=== PATIENT | male | born 1960 | race African-American/Black ===

== ENCOUNTER 2016-11-02 22:36 | Inpatient (IN) | payer MEDICARE ==
[~2016-11-02] VITALS: Ht 177.8 cm; Wt 94.5 kg
[~2016-11-02 22:36] MED LIST: GANCICLOVIR LEFT EYE; GLIPIZIDE10 MG PO; HUMALOG MIX 50/53 ML SC; HYDROCHLOROTHIA25 MG PO; HYDROCODON-ACE1 EAC7 PO; LIPITOR40 MG PO; NEURONTIN 300300 MG PO
[2016-11-03 05:56] VITALS: BP 131/80; Ht 177.8 cm; Wt 94.5 kg
[2016-11-03 07:59] VITALS: BP 131/85
--- NOTE | 2016-11-03 08:06 | NUR ---
PT. AOX4 RESP EVEN AND NONLABORED. DENIES NEEDS AT THIS TIME. IV IN RIGHT HAND PATENT AND INTACT. BED AT LOWEST SETTING. CALL LIGHT WITHIN REACH. WILL CONTINUE TO MONITOR
[2016-11-03 11:31] VITALS: BP 132/84
[2016-11-03 14:40] LABS: BASOPHILS 0.5 % (0.0-2.0); EOSINOPHILS 9.4 % (0-7); IMMATURE GRANULOCYTES 0.2 % (0-5); LYMPHOCYTES 31.9 % (15-50); MCH 27.6 pg (26.0-34.0); MCV 86.2 fL (80.0-100.0); MEAN PLATELET VOLUME 10.6 fL (7.4-10.4); MONOCYTES 10.6 % (2-11); NEUTROPHILS 47.4 % (40-80); PLATELET COUNT 154 10x3/uL (130-400); WBC 4.1 10x3/uL (4.8-10.8)
[2016-11-03 15:05] LABS: ALBUMIN 2.3 g/dL (3.4-5.0); ANION GAP 17.6 mmol/L (8-16); BILIRUBIN - TOTAL 0.24 mg/dL (0.2-1.3); CALCIUM 7.7 mg/dL (8.5-10.1); CARBON DIOXIDE 19.5 mmol/L (21.0-32.0); CREATININE - SERUM 7.1 mg/dL (0.6-1.3); POTASSIUM - SERUM 5.1 mmol/L (3.5-5.1); PROTEIN - SERUM 5.8 g/dL (6.4-8.2)
[2016-11-03 16:12] VITALS: BP 146/89
--- NOTE | 2016-11-03 20:22 | NUR ---
PATIENT SLEEPING. NO SIGNS OF DISTRESS NOTED. AROUSES EASILY TO VOICE. ALERT AND ORIENTED. ASSESSMENT COMPLETED. SCHEDULED MEDICATIONS GIVEN. DENIES ANY NEEDS AT THIS TIME. BED LOW. CALL LIGHT IN REACH.
[2016-11-03 21:00] VITALS: BP 138/89
[2016-11-04] VITALS (12 sets, daily range): BP systolic 130–196; BP diastolic 82–110
--- NOTE | 2016-11-04 06:09 | NUR ---
PATIENT RESTING WITH EYES CLOSED. NO VISIBLE SIGNS OF DISTRESS. BED IN LOWEST POSITION AND CALL LIGHT WITHIN REACH.
[2016-11-04 06:25] LABS: BASOPHILS 0.4 % (0.0-2.0); EOSINOPHILS 7.7 % (0-7); HEMATOCRIT 25.2 % (42.0-54.0); HEMOGLOBIN 8.3 g/dL (13.5-17.5); IMMATURE GRANULOCYTES 0.2 % (0-5); MCH 28.3 pg (26.0-34.0); MCHC 32.9 g/dL (31.0-37.0); MEAN PLATELET VOLUME 10.9 fL (7.4-10.4); MONOCYTES 13.2 % (2-11); NEUTROPHILS 49.5 % (40-80); PLATELET COUNT 173 10x3/uL (130-400); RBC 2.93 10x6/uL (4.20-6.10); RDW 13.7 % (11.5-14.5)
[2016-11-04 06:36] LABS: WBC 5.5 10x3/uL (4.8-10.8)
[2016-11-04 06:52] LABS: ALBUMIN 2.3 g/dL (3.4-5.0); ANION GAP 16.2 mmol/L (8-16); BILIRUBIN - TOTAL 0.33 mg/dL (0.2-1.3); CALCIUM 7.6 mg/dL (8.5-10.1); CARBON DIOXIDE 20.6 mmol/L (21.0-32.0); CREATININE - SERUM 7.3 mg/dL (0.6-1.3); POTASSIUM - SERUM 4.8 mmol/L (3.5-5.1); PROTEIN - SERUM 6.4 g/dL (6.4-8.2)
--- NOTE | 2016-11-04 07:34 | NUR ---
PT. AOX4 RESP EVEN AND NONLABORED LUNG SOUNDS CLEAR SKIN [place] WARM AND DRY WITH GOOD TURGOR NO EDEMA CAPILLARY REFILL<3SEC ABD SOFT AND ROUNDED BS+[id number]. PT. DENIES NEEDS AT THIS TIME. BED IN LOWEST POSITION AND CALL LIGHT WITHIN REACH. WILL CONTINUE TO MONITOR
--- NOTE | 2016-11-04 11:32 | NUR ---
Patient Name: NATALY SURESH Admission Status: ER Accout number: [id number] Admission Date: 11-03-2016 : 1960 Admission Diagnosis: Attending: CELESTINO Current LOS: 1 Anticipated DC Date: 11-07-2016 Planned Disposition: Home with Home Health Primary Insurance: [facility] Discharge Planning Comments: CM MET WITH PATIENT AND FIANCE (NAZANIN) REGARDING D/C NEEDS AND PLANS. PATIENT SLEEPING AND FIANCE ANSWERED QUESTIONS. FIANCE WILL DRIVE PATIENT HOME AT DISCHARGE. FIANCE STATED THERE ARE NO STEPS OR STAIRS AT THEIR HOME. PATIENT HAS A WALKER, WHEELCHAIR, CANE, AND GLUCOMETER AT HOME. PATIENT CHECKS HIS SUGAR 1-2 X A DAY PER FIANCE. PATIENTS PCP IS DR. BENNETT AT [facility] HERE IN [place]. PATIENT USES [facility] [address] FOR HIS PHARMACY. PATIENTS FIANCE CHOSE [facility] FIRST AND THEN [facility] SECOND IF THERE WAS A PROBLEM WITH INSURANCE. CM WILL CONTINUE TO FOLLOW PATIENT WITH D/C NEEDS AND PLANS. PCP DR. BENNETT ([facility]) [place] [address] - [phone] RIOS PEREA ([facility]) [phone] Coal Loader: Fara Poe How many steps to enter\exit or inside your home? 0 0 * PCP DR. BENNETT AT [facility] 0 * Pharmacy [facility] [address] 0 * Preadmission Environment Home with Family 0 * ADLs Independent 0 * Equipment Cane Glucometer Walker Wheelchair 0 * List name and contact numbers for known caregivers / representatives who currently or will assist patient after discharge: NAZANIN PEREA ([facility]) [phone] 0 * Community resources currently utilized None 0 * Additional services required to return to the preadmission environment? Yes 0 * Can the patient safely return to the preadmission environment? Yes 0 * Has this patient been hospitalized within the prior 30 days at any hospital? No 0 Grand Total: 0
--- NOTE | 2016-11-04 11:40 | NUR ---
PT. BLOOD GLUCOSE 46. D50 VIA IV GIVEN AT THIS TIME WILL RECHECK FSBS IN 15 MINUTES.
--- NOTE | 2016-11-04 15:10 | NUR ---
1503: UNABLE TO REACH FAMILY EXT 2500, 2525, AND 2206. ATTEMPTED X2 TO REACH FAMILY.
--- NOTE | 2016-11-04 21:55 | NUR ---
PATIENT RESTING IN BED WITH EYES CLOSED. NO SIGNS OF DISTRESS NOTED. AROUSES EASILY TO VOICE. ASSESSMENT COMPLETED. SCHEDULED MEDS GIVEN. FSBS 47 ASHLEY CRACKERS AND PEANUT BUTTER GIVEN. ALERT AND ORIENTED. DENIES ANY OTHER NEEDS AT THIS TIME. BED LOW. CALL LIGHT IN REACH. AT BEDSIDE
--- NOTE | 2016-11-05 00:18 | NUR ---
Rehab Prescreen Order received- the patient has [facility] insurance & will require a PreAuth prior to IRF stay. Will need an OT eval for PreAuth & awaiting PT eval that has been ordered. Thank you for this referral! Cecile García RN Clinical Liaison, [place]
--- NOTE | 2016-11-05 01:58 | NUR ---
PATIENT WATCHING TV WITH GUEST AT BEDSIDE AND DENIES NEEDS AT THIS TIME. BED IN LOWEST POSITION AND CALL LIGHT WITHIN REACH.
[2016-11-05 05:00] VITALS: BP 143/82
[2016-11-05 06:32] LABS: BASOPHILS 0.1 % (0.0-2.0); EOSINOPHILS 5.9 % (0-7); HEMATOCRIT 25.2 % (42.0-54.0); HEMOGLOBIN 8.1 g/dL (13.5-17.5); IMMATURE GRANULOCYTES 0.1 % (0-5); MCH 27.6 pg (26.0-34.0); MCHC 32.1 g/dL (31.0-37.0); MCV 85.7 fL (80.0-100.0); MEAN PLATELET VOLUME 11.5 fL (7.4-10.4); MONOCYTES 10.4 % (2-11); NEUTROPHILS 71.5 % (40-80); PLATELET COUNT 172 10x3/uL (130-400); RBC 2.94 10x6/uL (4.20-6.10); RDW 13.8 % (11.5-14.5); WBC 6.8 10x3/uL (4.8-10.8)
[2016-11-05 07:07] LABS: ALBUMIN 2.2 g/dL (3.4-5.0); BILIRUBIN - TOTAL 0.32 mg/dL (0.2-1.3); CALCIUM 7.9 mg/dL (8.5-10.1); CARBON DIOXIDE 18.2 mmol/L (21.0-32.0); CREATININE - SERUM 7.6 mg/dL (0.6-1.3); POTASSIUM - SERUM 5.2 mmol/L (3.5-5.1); PROTEIN - SERUM 6.5 g/dL (6.4-8.2)
--- NOTE | 2016-11-05 09:00 | NUR ---
ASSESSMENT PER FLOW SHEET.PT WITHOUT DISTRESS.CALL LIGHT IN REACH.DENIES NEEDS.
--- NOTE | 2016-11-05 09:33 | NUR ---
Rehab Prescreening Consult recieved and the chart has been reviewed. He is [facility] M[facility] and will require a preauthorization for IRF. A PT/OT eval will be required for the insurance to review. The CM will be made aware. Audra Britt RN Clinical Liaison, Rehab
[2016-11-05 11:04] VITALS: BP 181/111
--- NOTE | 2016-11-05 11:30 | NUR ---
FSBS 81.DENIES NEEDS.
[2016-11-05 11:48] VITALS: BP 154/99
--- NOTE | 2016-11-05 14:30 | NUR ---
RESTING WITHOUT DISTRESS.PAIN CONTROLLED WITH CERTIFIED SURGICAL ASSISTANT.
[2016-11-05 16:35] VITALS: BP 167/99
--- NOTE | 2016-11-05 18:47 | NUR ---
REMAINS WITHOUT NEEDS,WITHOUT CHANGE.CONT PLAN OF CARE
--- NOTE | 2016-11-05 19:00 | NUR ---
BEDSIDE REPORT RECEIVED AND CARE OF PT ASSUMED. PT SITTING UP ON SIDE OF BED AT THIS TIME. DRESSING ON LEFT HIP CLEAN AND DRY. IV IN RIGHT HAND PATENT WITH 1/2 NS INFUSING AT 75 ML /HR. REHAB SPECIALIST / DILAUDID IN USE FOR PAIN CONTROL. WILL MONITOR CLOSELY FOR NEEDS. CALL LIGHT WITHIN REACH.
[2016-11-05 20:48] VITALS: BP 159/94
--- NOTE | 2016-11-05 21:00 | NUR ---
HS MEDICATIONS GIVEN. FSBS THIS CHECK 72...HS SNACK OF PEANUT BUTTER, ASHLEY CRACKERS AND REGULAR LEMON [place] PASS SODA GIVEN. WILL CONTIUE TO MONITOR FOR NEEDS.
[2016-11-06 00:18] VITALS: BP 175/88
--- NOTE | 2016-11-06 01:46 | NUR ---
PT RESTING QUIETLY IN SUPINE POSITION WITH UNLABORED BREATHING. WILL CONTINUE TO MONITOR FOR NEEDS.
--- NOTE | 2016-11-06 03:47 | NUR ---
BLOOD PRESSURE 185/105 THIS CHECK. GAVE HYDRALAZINE 10 MG IVP PER PRN ORDER. WILL MONITOR FOR EFFECTIVENESS.
[2016-11-06 04:27] VITALS: BP 185/105
[2016-11-06 06:32] LABS: BASOPHILS 0.1 % (0.0-2.0); EOSINOPHILS 5.7 % (0-7); HEMATOCRIT 24.7 % (42.0-54.0); HEMOGLOBIN 8.2 g/dL (13.5-17.5); IMMATURE GRANULOCYTES 0.3 % (0-5); LYMPHOCYTES 13.5 % (15-50); MCH 28.2 pg (26.0-34.0); MCHC 33.2 g/dL (31.0-37.0); MCV 84.9 fL (80.0-100.0); MEAN PLATELET VOLUME 11.3 fL (7.4-10.4); MONOCYTES 12.2 % (2-11); NEUTROPHILS 68.2 % (40-80); PLATELET COUNT 167 10x3/uL (130-400); RBC 2.91 10x6/uL (4.20-6.10); RDW 13.7 % (11.5-14.5); WBC 6.8 10x3/uL (4.8-10.8)
[2016-11-06 06:39] LABS: ALBUMIN 2.1 g/dL (3.4-5.0); ANION GAP 19.7 mmol/L (8-16); BILIRUBIN - TOTAL 0.37 mg/dL (0.2-1.3); CALCIUM 8.2 mg/dL (8.5-10.1); CARBON DIOXIDE 16.1 mmol/L (21.0-32.0); CREATININE - SERUM 8.1 mg/dL (0.6-1.3); POTASSIUM - SERUM 5.8 mmol/L (3.5-5.1); PROTEIN - SERUM 6.5 g/dL (6.4-8.2)
--- NOTE | 2016-11-06 08:03 | OP ---
PATIENT NAME: NATALY SURESH MEDICAL RECORD: [id number] :56 LOCATION:D.[id number] ADMISSION DATE:11/03/16 SURGEON: ADRIANE SERNA MD DATE OF OPERATION: 11/04/2016 PREOPERATIVE DIAGNOSIS: Left femoral neck fracture. POSTOPERATIVE DIAGNOSIS: Left femoral neck fracture. PROCEDURE PERFORMED: Left hip pinning with Biomet titanium cannulated screw, 6.5 screws. SURGEON: Ricco Serna MD ANESTHESIA: General. CONDITION: He tolerated the procedure well, was transferred to recovery room in stable condition at termination of procedure. INDICATIONS: This is a 56-year-old gentleman, who fell and landed on his left hip, presents with a nondisplaced left femoral neck fracture. We discussed the options and he elected to go ahead with screws. Discussed with him risks, benefits, and alternatives including failure of the bone to heal, need for further procedure, anesthesia risk, he understood and wished to proceed. OPERATIVE REPORT: The patient was taken to operating room, placed in a supine position. General anesthesia was obtained. His left hip was confirmed to be the correct hip. It was prepped and draped in normal fashion. He did receive Ancef per protocol. Procedure was begun by making li on his body with the AP and lateral views and then making a small incision. This was taken down, split to the IT band. Once this was accomplished, I placed guidewires up across the femoral neck into the femoral head. I then proceeded to place three 6.5 titanium cannulated screw, 85-mm in length. I did place 2 washers on them. These AP and lateral views showed that they were in good position. I therefore went ahead, irrigated, then closed the IT band with a #1 Vicryl followed by 2-0 Vicryl, then 3-0 Prolene, soft dressing was placed. He was awakened and transferred to the recovery room in stable condition, having tolerated procedure well. TRANSINT:[id number] Voice Confirmation ID: [id number] DOCUMENT ID: [id number] ADRIANE SERNA MD at 0803 CC: [id number] DICTATION DATE: 11/04/16 1557 RESIDENTIAL SPECIALIST: 11/04/16 1908 ADM IN [place] [id number]
[2016-11-06 08:07] VITALS: BP 138/75
--- NOTE | 2016-11-06 08:11 | NUR ---
AWAKE AND ALERT. ORIENTED X3. NO C/O AT THIS TIME. FAMILY AT BEDSIDE. LUNGS WITH FAINT CRACKLES IN UPPER LOBES ENCOURAGED TO USE IS WITH GOOD COUGH AFTER. SKIN IS INTACT WITHOUT REDNESS EXCEPT INCISION TO LEFT THIGH WHICH HAS A DRY INTACT DRESSIGN IN PLACE. NEURO CHECKS WNL. IV TO RIGHT HAND PATENT WITHOUT REDNESS AT INSERTION SITE. REPORTS NO BM SINCE SURGERY. WILL MONITOR. DENIES NEEDS.
--- NOTE | 2016-11-06 09:30 | NUR ---
IV TO RIGHT HAND CAME OUT WHILE TRANSFERRING WITH PT WITH CATHETER INTACT. UP IN CHAIR AT THIS TIME.
--- NOTE | 2016-11-06 11:19 | NUR ---
IV access-20 gauge inserted in right upper arm for IV access Ana Rutherford RN
--- NOTE | 2016-11-06 11:30 | NUR ---
IV SITED TO RIGHT UPPER ARM PER BETHEL FRANCIS RN. ATTEMPTS X 3.
[2016-11-06 11:56] VITALS: BP 136/78
--- NOTE | 2016-11-06 12:00 | NUR ---
FSBS 107. NO COVERAGE REQUIRED.
[2016-11-06 15:37] VITALS: BP 132/70
[2016-11-06 17:11] LABS: APPEARANCE CLEAR (CLEAR); BILIRUBIN NEGATIVE (NEGATIVE); COLOR YELLOW (YELLOW); GLUCOSE NEGATIVE (NEGATIVE); KETONE NEGATIVE (NEGATIVE); LEUKOCYTE ESTERASE NEGATIVE (NEGATIVE); NITRITE NEGATIVE (NEGATIVE); PROTEIN 3+ mg/dL (NEGATIVE); SPECIFIC GRAVITY 1.015 (1.005-1.020); UROBILINOGEN NORMAL (NORMAL)
[2016-11-06 17:13] LABS: BACTERIA FEW /hpf (NONE SEEN); EPITHELIAL CELLS 0-5 /hpf (0-5); WHITE CELLS - URINE 0-5 /hpf (0-5)
--- NOTE | 2016-11-06 18:28 | NUR ---
ATE ALL OF SUPPER HE WANTED. NO CHANGES NOTED. DENIES NEEDS.
--- NOTE | 2016-11-06 19:40 | NUR ---
PT LYING IN BED WATCHING TV, ASSESSMENT COMPLETE, NO ACUTE DISTRESS NOTED, DENIES NEEDS AT THIS TIME, FALL PRECAUTIONS IN PLACE, CL IN REACH, WILL MONITOR
[2016-11-06 20:00] VITALS: BP 152/87
--- NOTE | 2016-11-06 21:22 | NUR ---
MEDS GIVEN PER MAR, FAVIOLA WELL, DENIES NEEDS, FALL PRECAUTIONS IN PLACE, CL IN REACH
--- NOTE | 2016-11-06 23:52 | NUR ---
RESTING IN BED WITH EYES CLOSED, RESP WITH EASE, NO DISTRESS NOTED, FALL PRECAUTIONS IN PLACE, CL IN REACH
[2016-11-07 04:00] VITALS: BP 167/95
--- NOTE | 2016-11-07 04:44 | NUR ---
PRN APRESSOLINE GIVEN PER MAR FOR BP OF 167/95, NO DISTRESS NOTED, DENIES NEEDS, VISITOR IN ROOM, CL IN REACH
--- NOTE | 2016-11-07 06:35 | NUR ---
PT REFUSED TO ALLOW LABS TO BE DRAWN
[2016-11-07 08:55] VITALS: BP 166/83
[2016-11-07 09:19] LABS: % SATURATION 11 % (15-55); IRON 20 ug/dl (35-150); TOTAL IRON BIND CAPACITY 173 ug/dl (260-445); UNSAT IRON BIND CAPACITY 153 ug/dl (150-375)
--- NOTE | 2016-11-07 09:30 | NUR ---
CM REASSESSMENT NOTE: PATIENT IS DISCHARGING HOME TODAY. PATIENT REFUSED SNF, AND OP REHAB. PATIENT REQUESTED HH W/PHYSICAL THERAPY. THE [facility] FORM WAS SIGNED WITH [facility] AND REFERRAL WAS SENT. THE D/C IMM NOTICE WAS SERVED. CM WILL CONTINUE TO FOLLOW PATIENT WITH D/C NEEDS AND PLANS.
[2016-11-07 11:58] VITALS: BP 147/82
[2016-11-07 12:12] LABS: BASOPHILS 0.3 % (0.0-2.0); EOSINOPHILS 3.5 % (0-7); HEMATOCRIT 25.4 % (42.0-54.0); HEMOGLOBIN 8.6 g/dL (13.5-17.5); IMMATURE GRANULOCYTES 0.3 % (0-5); MCH 27.9 pg (26.0-34.0); MCHC 33.9 g/dL (31.0-37.0); MEAN PLATELET VOLUME 10.6 fL (7.4-10.4); MONOCYTES 11.5 % (2-11); NEUTROPHILS 75.4 % (40-80); PLATELET COUNT 193 10x3/uL (130-400); RBC 3.08 10x6/uL (4.20-6.10); RDW 13.6 % (11.5-14.5); WBC 7.7 10x3/uL (4.8-10.8)
[2016-11-07 12:15] LABS: MCV 82.5 fL (80.0-100.0)
[2016-11-07 12:44] LABS: ALBUMIN 2.1 g/dL (3.4-5.0); BILIRUBIN - TOTAL 0.34 mg/dL (0.2-1.3); CREATININE - SERUM 8.5 mg/dL (0.6-1.3); PHOSPHOROUS 6.2 mg/dL (2.5-4.9); PROTEIN - SERUM 6.2 g/dL (6.4-8.2)
[2016-11-07 12:46] LABS: ANION GAP 23.6 mmol/L (8-16); POTASSIUM - SERUM 4.6 mmol/L (3.5-5.1)
--- NOTE | 2016-11-07 13:26 | NUR ---
Rehab has been following this patient during his stay. He is not medically stable and non-compliant with the physicians plan of care. He told the CM today he wants to go home and declines a SNF or IRF. He does not qualify for inpatient rehab. Audra Britt RN CL
[2016-11-07] MEDS ORDERED: NORVASC5 MG PO (18:04)
[2016-11-07] MEDS ORDERED: ROCALTROL0.25 MCG PO (18:05)
[2016-11-07] MEDS ORDERED: LEVEMIR100 U/M1 SC (18:07)
[2016-11-07] MEDS ORDERED: TYLENOL W/CODEI1 TAB PO (18:07)
[2016-11-07] MEDS ORDERED: ELIQUIS2.5 MG PO (18:07)
[2016-11-08 10:13] LABS: HEPATITIS C ANTIBODY <0.1 (0.0-0.9)
--- NOTE | 2016-11-28 12:12 | DS ---
PATIENT:NATALY SURESH :56 MEDICAL RECORD: [id number] DISCHARGE SUMMARY ADMISSION DATE: 11/03/16 DISCHARGE DATE: 11/07/16 ADMITTING DIAGNOSIS: Left femoral neck fracture. DISCHARGE DIAGNOSIS: Left femoral neck fracture. PROCEDURE PERFORMED: Left hip percutaneous pinning with Biomet titanium cannulated screws. ADMITTING PHYSICIAN: Ricco Serna MD. HISTORY OF PRESENT ILLNESS: This is a 56-year-old gentleman with multiple medical problems. He came into the hospital after having a fall. He had a nondisplaced femoral neck fracture. We discussed the options felt that pinning this would be appropriate, discussed risks, benefits, and alternatives. He understood and wished to proceed. After ____, the patient was taken to the operating underwent a pinning. He subsequently did quite well postoperatively, although we did stay until the ____. He was discharged to home to continue post hip fracture protocol. He is going to be toe-touch weightbearing initially. He was going to see us back in a couple of weeks. Continue on pain meds and anticoagulation therapy and call me if he is having any problems. TRANSINT:[id number] Voice Confirmation ID: [id number] DOCUMENT ID: [id number] ADRIANE SERNA MD at 1212 CC: [id number] DICTATION DATE: 11/18/16 1436 FLOATLIGHT POWDER MIXER: 11/19/16 0446 DIS IN 11/07/16 [place] [address]
== END 2016-11-07 19:10 | disposition home health service (06) | DRG 480 ==
LOC: D.ER 22:36 → D.MS 11-03 03:56
PROVIDERS: Family Medicine Adult Medicine; Internal Medicine Nephrology; ADMIT Orthopaedic Surgery Sports Medicine
PROC: 0QH734Z Insertion of Internal Fixation Device into Left Upper Femur, Percutaneous Approach (ICD-10-PCS; principal; 2016-11-04 12:15)
DX: S72.012A Unspecified intracapsular fracture of left femur, initial encounter for closed fracture (principal); N18.6 End stage renal disease; I12.0 Hypertensive chronic kidney disease with stage 5 chronic kidney disease or end stage renal disease; N17.9 Acute kidney failure, unspecified; E87.2 Acidosis; W19.XXXA Unspecified fall, initial encounter; E11.22 Type 2 diabetes mellitus with diabetic chronic kidney disease; E11.65 Type 2 diabetes mellitus with hyperglycemia; Z79.4 Long term (current) use of insulin; E11.40 Type 2 diabetes mellitus with diabetic neuropathy, unspecified; D63.1 Anemia in chronic kidney disease; I25.10 Atherosclerotic heart disease of native coronary artery without angina pectoris; I25.2 Old myocardial infarction; E87.5 Hyperkalemia; E83.39 Other disorders of phosphorus metabolism

== ENCOUNTER 2016-12-25 09:25 | Inpatient (IN) | payer MEDICARE, MEDICAID ==
[~2016-12-25 09:25] MED LIST changes: +ELIQUIS2.5 MG PO; +LEVEMIR100 U/M1 SC; +NORVASC5 MG PO; +ROCALTROL0.25 MCG PO; +TYLENOL W/CODEI1 TAB PO
[2016-12-25 10:27] LABS: BASOPHILS 0.6 % (0-2); EOSINOPHILS 3.9 % (0-7); HEMATOCRIT 25.1 % (42.0-54.0); IMMATURE GRANULOCYTES 0.2 % (0-5); LYMPHOCYTES 29.4 % (15-50); MCHC 31.9 g/dL (31.0-37.0); MCV 87.8 fL (80.0-100.0); MEAN PLATELET VOLUME 10.7 fL (7.4-10.4); MONOCYTES 7.9 % (2-11); PLATELET COUNT 195 10x3/uL (130-400); RBC 2.86 10x6/uL (4.20-6.10); WBC 5.4 10x3/uL (4.8-10.8)
[2016-12-25 10:47] LABS: ALBUMIN 2.9 g/dL (3.4-5.0); BILIRUBIN - TOTAL 0.4 mg/dL (0.2-1.3); CALCIUM 8.7 mg/dL (8.5-10.1); CARBON DIOXIDE 20.2 mmol/L (21.0-32.0); CREATININE - SERUM 6.1 mg/dL (0.6-1.3); PROTEIN - SERUM 7.3 g/dL (6.4-8.2)
[2016-12-25 10:50] LABS: ANION GAP 16.8 mmol/L (8-16)
[2016-12-25 15:01] LABS: % SATURATION 16 % (15-55); IRON 32 ug/dl (35-150); TOTAL IRON BIND CAPACITY 193 ug/dl (260-445); UNSAT IRON BIND CAPACITY 161 ug/dl (150-375)
[2016-12-26 05:24] LABS: BASOPHILS 0.4 % (0-2); EOSINOPHILS 4.2 % (0-7); HEMATOCRIT 22.1 % (42.0-54.0); IMMATURE GRANULOCYTES 0.2 % (0-5); LYMPHOCYTES 18.2 % (15-50); MCH 27.7 pg (26.0-34.0); MCHC 31.7 g/dL (31.0-37.0); MCV 87.4 fL (80.0-100.0); MEAN PLATELET VOLUME 10.2 fL (7.4-10.4); MONOCYTES 7.4 % (2-11); NEUTROPHILS 69.6 % (40-80); RBC 2.53 10x6/uL (4.20-6.10); RDW 15.1 % (11.5-14.5)
[2016-12-26 05:35] LABS: INR 1.13 (0.85-1.17); PROTIME 14.3 SECONDS (11.6-15.0)
[2016-12-26 05:37] LABS: PLATELET COUNT 155 10x3/uL (130-400)
[2016-12-26 05:43] LABS: CALCIUM 8.3 mg/dL (8.5-10.1); CARBON DIOXIDE 19.7 mmol/L (21.0-32.0); CREATININE - SERUM 6.1 mg/dL (0.6-1.3); PHOSPHOROUS 5.5 mg/dL (2.5-4.9); POTASSIUM - SERUM 5.7 mmol/L (3.5-5.1)
[2016-12-27 06:03] LABS: BASOPHILS 0.2 % (0-2); EOSINOPHILS 2.8 % (0-7); HEMATOCRIT 24.5 % (42.0-54.0); HEMOGLOBIN 8.1 g/dL (13.5-17.5); IMMATURE GRANULOCYTES 0.2 % (0-5); LYMPHOCYTES 19.7 % (15-50); MCH 28.3 pg (26.0-34.0); MCHC 33.1 g/dL (31.0-37.0); MCV 85.7 fL (80.0-100.0); MEAN PLATELET VOLUME 9.7 fL (7.4-10.4); MONOCYTES 13.4 % (2-11); NEUTROPHILS 63.7 % (40-80); PLATELET COUNT 150 10x3/uL (130-400); RBC 2.86 10x6/uL (4.20-6.10); RDW 15.5 % (11.5-14.5); WBC 5.1 10x3/uL (4.8-10.8)
[2016-12-27 06:31] LABS: ANION GAP 16.8 mmol/L (8-16); CALCIUM 8.1 mg/dL (8.5-10.1); CARBON DIOXIDE 18.2 mmol/L (21.0-32.0); CREATININE - SERUM 6.2 mg/dL (0.6-1.3); PHOSPHOROUS 5.1 mg/dL (2.5-4.9)
[2016-12-27] MEDS ORDERED: VELTASSA8.4 GM PO (11:16)
[2016-12-27] MEDS ORDERED: TUMS500 MG PO (11:17)
[2016-12-27] MEDS ORDERED: SODIUM BICARBO650 MG PO (11:17)
== END 2016-12-27 14:45 | disposition home health service (06) | DRG 641 ==
LOC: D.ER 09:25 → D.M2 14:11
PROVIDERS: Emergency Medicine; ADMIT Internal Medicine Nephrology
DX: E87.5 Hyperkalemia (principal); I12.0 Hypertensive chronic kidney disease with stage 5 chronic kidney disease or end stage renal disease; N18.5 Chronic kidney disease, stage 5; N25.81 Secondary hyperparathyroidism of renal origin; E11.22 Type 2 diabetes mellitus with diabetic chronic kidney disease; E11.40 Type 2 diabetes mellitus with diabetic neuropathy, unspecified; I25.10 Atherosclerotic heart disease of native coronary artery without angina pectoris; Z79.4 Long term (current) use of insulin

== ENCOUNTER 2017-03-28 01:14 | Emergency (ER) | payer MEDICARE, MEDICAID ==
[~2017-03-28 01:14] MED LIST changes: +SODIUM BICARBO650 MG PO; +TUMS500 MG PO; +VELTASSA8.4 GM PO
== END 2017-03-28 03:30 | disposition home or self-care (01) ==
LOC: D.ER 01:14
DX: S43.402A Unspecified sprain of left shoulder joint, initial encounter (principal); W01.0XXA Fall on same level from slipping, tripping and stumbling without subsequent striking against object, initial encounter; Y93.89 Activity, other specified; Y92.89 Other specified places as the place of occurrence of the external cause; S63.502A Unspecified sprain of left wrist, initial encounter; I10 Essential (primary) hypertension; K86.1 Other chronic pancreatitis

== ENCOUNTER 2017-09-29 10:03 | Emergency (ER) | payer MEDICARE, MEDICAID ==
[2017-09-29 10:42] LABS: HEMATOCRIT 33.1 % (42.0-54.0); HEMOGLOBIN 11.3 g/dL (13.5-17.5); LYMPHOCYTES 29.7 % (15-50); MCH 30.1 pg (26.0-34.0); MCHC 34.1 g/dL (31.0-37.0); MCV 88.3 fL (80.0-100.0); MEAN PLATELET VOLUME 9.6 fL (7.4-10.4); NEUTROPHILS 61.2 % (40-80); PLATELET COUNT 161 10x3/uL (130-400); RBC 3.75 10x6/uL (4.20-6.10); RDW 13.8 % (11.5-14.5)
[2017-09-29 10:51] LABS: ALBUMIN 3.5 g/dL (3.4-5.0); ANION GAP 14.5 mmol/L (8-16); BILIRUBIN - TOTAL 0.76 mg/dL (0.2-1.3); CALCIUM 8.4 mg/dL (8.5-10.1); CARBON DIOXIDE 28.4 mmol/L (21.0-32.0); CREATININE - SERUM 5.9 mg/dL (0.6-1.3); POTASSIUM - SERUM 3.9 mmol/L (3.5-5.1); PROTEIN - SERUM 7.8 g/dL (6.4-8.2)
== END 2017-09-29 13:17 | disposition home or self-care (01) ==
LOC: D.ER 10:03
PROVIDERS: Emergency Medicine
DX: K85.90 Acute pancreatitis without necrosis or infection, unspecified (principal); R10.13 Epigastric pain; I12.9 Hypertensive chronic kidney disease with stage 1 through stage 4 chronic kidney disease, or unspecified chronic kidney disease; N18.9 Chronic kidney disease, unspecified

== ENCOUNTER 2017-10-27 08:00 | Inpatient (IN) | payer MEDICARE, MEDICAID ==
[2017-10-27 08:41] LABS: BASOPHILS 0.8 % (0-2); HEMATOCRIT 32.1 % (42.0-54.0); HEMOGLOBIN 10.6 g/dL (13.5-17.5); IMMATURE GRANULOCYTES 0.2 % (0-5); LYMPHOCYTES 30.4 % (15-50); MCH 30.3 pg (26.0-34.0); MCV 91.7 fL (80.0-100.0); MONOCYTES 9.3 % (2-11); NEUTROPHILS 55.3 % (40-80); RDW 14.7 % (11.5-14.5); WBC 6.2 10x3/uL (4.8-10.8)
[2017-10-27 08:47] LABS: PLATELET COUNT 206 10x3/uL (130-400)
[2017-10-27 08:56] LABS: ALBUMIN 3.4 g/dL (3.4-5.0); ANION GAP 15.5 mmol/L (8-16); BILIRUBIN - TOTAL 0.5 mg/dL (0.2-1.3); CALCIUM 9.4 mg/dL (8.5-10.1); CARBON DIOXIDE 24.1 mmol/L (21.0-32.0); CREATININE - SERUM 7.8 mg/dL (0.6-1.3); POTASSIUM - SERUM 4.6 mmol/L (3.5-5.1); PROTEIN - SERUM 7.8 g/dL (6.4-8.2)
[2017-10-27 09:21] LABS: APPEARANCE CLEAR (CLEAR); BACTERIA FEW /hpf (NONE SEEN); BILIRUBIN NEGATIVE (NEGATIVE); COLOR YELLOW (YELLOW); EPITHELIAL CELLS 0-5 /hpf (0-5); GLUCOSE 250 mg/dL (NEGATIVE); GRANULAR CAST 0-5 /lpf (NONE SEEN); HYALINE CAST RARE /lpf (NONE SEEN); KETONE NEGATIVE (NEGATIVE); MUCUS <1+ /lpf (NONE SEEN); NITRITE NEGATIVE (NEGATIVE); PROTEIN 3+ mg/dL (NEGATIVE); SPECIFIC GRAVITY 1.015 (1.005-1.020); UROBILINOGEN NORMAL (NORMAL); WHITE CELLS - URINE 0-5 /hpf (0-5)
[2017-10-27 13:16] VITALS: BMI 26.6
[2017-10-27 14:56] VITALS: BP 139/81
[2017-10-27] MEDS ORDERED: ELAVIL25 MG PO (17:21)
[2017-10-27] MEDS ORDERED: LASIX80 MG PO (17:22)
[2017-10-27] MEDS ORDERED: LYRICA25 MG PO (17:23)
[2017-10-27] MEDS ORDERED: MIRALAX17 GM PO (17:23)
[2017-10-27] MEDS ORDERED: RENAGEL800 MG PO (17:24)
[2017-10-27] MEDS ORDERED: SENSIPAR30 MG PO (17:24)
[2017-10-27 20:00] VITALS: BP 139/85
[2017-10-28] VITALS: BP 138/80
[2017-10-28 04:00] VITALS: BP 132/83
[2017-10-28 06:34] LABS: INR 1.03 (0.85-1.17); PROTIME 13.1 SECONDS (11.6-15.0)
[2017-10-28 06:37] LABS: ALBUMIN 3.1 g/dL (3.4-5.0); ANION GAP 17.3 mmol/L (8-16); BILIRUBIN - TOTAL 0.42 mg/dL (0.2-1.3); CALCIUM 8.9 mg/dL (8.5-10.1); CARBON DIOXIDE 22.1 mmol/L (21.0-32.0); CHOL - HDL RATIO 2.4 ratio (2.3-4.9); CREATININE - SERUM 8.8 mg/dL (0.6-1.3); LDL-HDL RATIO 1.2 ratio (1.5-3.5); PHOSPHOROUS 7.6 mg/dL (2.5-4.9); PROTEIN - SERUM 6.9 g/dL (6.4-8.2)
[2017-10-28 06:39] LABS: POTASSIUM - SERUM 5.4 mmol/L (3.5-5.1)
[2017-10-28 08:04] VITALS: BP 126/78
[2017-10-28 11:04] VITALS: BP 131/82
[2017-10-28 13:08] VITALS: BMI 26.5
[2017-10-28 14:39] VITALS: BP 138/71
[2017-10-28 20:39] VITALS: BP 156/91
[2017-10-29] VITALS: BP 190/109
[2017-10-29 04:53] VITALS: BP 159/95
[2017-10-29 06:00] LABS: BASOPHILS 0.8 % (0-2); HEMATOCRIT 28.6 % (42.0-54.0); HEMOGLOBIN 9.6 g/dL (13.5-17.5); IMMATURE GRANULOCYTES 0.2 % (0-5); LYMPHOCYTES 28.2 % (15-50); MCH 30.5 pg (26.0-34.0); MCHC 33.6 g/dL (31.0-37.0); MCV 90.8 fL (80.0-100.0); MONOCYTES 11.3 % (2-11); NEUTROPHILS 55.5 % (40-80); PLATELET COUNT 170 10x3/uL (130-400); RBC 3.15 10x6/uL (4.20-6.10); RDW 14.8 % (11.5-14.5); WBC 5.2 10x3/uL (4.8-10.8)
[2017-10-29 06:39] LABS: ALBUMIN 2.8 g/dL (3.4-5.0); ANION GAP 12.5 mmol/L (8-16); BILIRUBIN - DIRECT 0.14 mg/dL (0.00-0.30); BILIRUBIN - INDIRECT 0.32 mg/dL (0.00-1.00); BILIRUBIN - TOTAL 0.46 mg/dL (0.2-1.3); CALCIUM 8.5 mg/dL (8.5-10.1); CARBON DIOXIDE 27.3 mmol/L (21.0-32.0); CREATININE - SERUM 5.8 mg/dL (0.6-1.3); PHOSPHOROUS 4.5 mg/dL (2.5-4.9); POTASSIUM - SERUM 4.8 mmol/L (3.5-5.1); PROTEIN - SERUM 6.7 g/dL (6.4-8.2)
[2017-10-29 08:09] VITALS: BP 153/94
[2017-10-29 11:19] VITALS: BP 150/83
[2017-10-29 15:22] VITALS: BP 149/90
[2017-10-29 20:00] VITALS: BP 137/84
[2017-10-30 04:00] VITALS: BP 150/91
[2017-10-30 06:23] LABS: BASOPHILS 0.9 % (0-2); EOSINOPHILS 4.8 % (0-7); HEMATOCRIT 29.3 % (42.0-54.0); HEMOGLOBIN 9.5 g/dL (13.5-17.5); IMMATURE GRANULOCYTES 0.2 % (0-5); LYMPHOCYTES 25.5 % (15-50); MCH 30.1 pg (26.0-34.0); MCHC 32.4 g/dL (31.0-37.0); MCV 92.7 fL (80.0-100.0); MEAN PLATELET VOLUME 10.5 fL (7.4-10.4); MONOCYTES 10.5 % (2-11); NEUTROPHILS 58.1 % (40-80); PLATELET COUNT 171 10x3/uL (130-400); RBC 3.16 10x6/uL (4.20-6.10); RDW 14.8 % (11.5-14.5); WBC 5.8 10x3/uL (4.8-10.8)
[2017-10-30 06:26] LABS: INR 1.11 (0.85-1.17); PROTIME 13.9 SECONDS (11.6-15.0)
[2017-10-30 06:29] LABS: ANION GAP 14.3 mmol/L (8-16); CALCIUM 8.6 mg/dL (8.5-10.1); CARBON DIOXIDE 26.2 mmol/L (21.0-32.0); POTASSIUM - SERUM 5.5 mmol/L (3.5-5.1)
[2017-10-30 06:30] LABS: CREATININE - SERUM 7.3 mg/dL (0.6-1.3)
[2017-10-30 08:53] VITALS: BP 148/92
[2017-10-30 11:53] VITALS: BMI 26.5
== END 2017-10-30 13:03 | disposition home or self-care (01) | DRG 438 ==
LOC: D.ER 08:00 → D.M2 11:09 → D.EDHOLD 11:09 → D.M2 12:08
PROVIDERS: Emergency Medicine; Internal Medicine Gastroenterology; Internal Medicine Nephrology
DX: K86.1 Other chronic pancreatitis (principal); N18.6 End stage renal disease; I12.0 Hypertensive chronic kidney disease with stage 5 chronic kidney disease or end stage renal disease; E11.22 Type 2 diabetes mellitus with diabetic chronic kidney disease; E11.42 Type 2 diabetes mellitus with diabetic polyneuropathy; K82.9 Disease of gallbladder, unspecified; E11.65 Type 2 diabetes mellitus with hyperglycemia

== ENCOUNTER 2017-11-21 12:05 | Emergency (ER) | payer MEDICARE, MEDICAID ==
[~2017-11-21 12:05] MED LIST changes: +ELAVIL25 MG PO; +LASIX80 MG PO; +LYRICA25 MG PO; +MIRALAX17 GM PO; +RENAGEL800 MG PO; +SENSIPAR30 MG PO
[2017-11-21 13:29] LABS: BASOPHILS 0.6 % (0-2); EOSINOPHILS 0.6 % (0-7); HEMATOCRIT 31.9 % (42.0-54.0); HEMOGLOBIN 10.7 g/dL (13.5-17.5); IMMATURE GRANULOCYTES 0.5 % (0-5); LYMPHOCYTES 11.3 % (15-50); MCH 30.9 pg (26.0-34.0); MCHC 33.5 g/dL (31.0-37.0); MCV 92.2 fL (80.0-100.0); MEAN PLATELET VOLUME 10.6 fL (7.4-10.4); MONOCYTES 11.9 % (2-11); NEUTROPHILS 75.1 % (40-80); PLATELET COUNT 189 10x3/uL (130-400); RBC 3.46 10x6/uL (4.20-6.10); WBC 7.9 10x3/uL (4.8-10.8)
[2017-11-21 13:49] LABS: ALBUMIN 3.5 g/dL (3.4-5.0); ALKALINE PHOSPHATASE 86 U/L (46-116); ALT (SGPT) 25 U/L (10-68); BILIRUBIN - TOTAL 0.72 mg/dL (0.2-1.3); CALC OSMOLALITY 272 mosm/kg (275-300); CALCIUM 8.9 mg/dL (8.5-10.1); CARBON DIOXIDE 26.7 mmol/L (21.0-32.0); CHLORIDE - SERUM 97 mmol/L (98-107); CREATININE - SERUM 4.2 mg/dL (0.6-1.3); GLUCOSE 140 mg/dL (74-106); POTASSIUM - SERUM 4.2 mmol/L (3.5-5.1); PROTEIN - SERUM 8.2 g/dL (6.4-8.2); SODIUM 134 mmol/L (136-145); UREA NITROGEN 20 mg/dL (7-18); eGFR NON AFRICAN AMERICAN 15 mL/min (90-120)
[2017-11-21 14:11] LABS: CREATINE KINASE 254 UL (21-232); LIPASE 545 U/L (73-393); PRO BNP 15503 pg/mL (0-125)
[2017-11-21 14:12] LABS: CKMB 6.7 U/L (0.0-3.6)
[2017-11-21 14:13] LABS: TROPONIN-I 0.975 ng/mL (0.000-0.060)
== END 2017-11-21 16:25 | disposition home or self-care (01) ==
LOC: D.ER 12:05
PROVIDERS: Family Medicine
DX: R41.82 Altered mental status, unspecified (principal); R79.89 Other specified abnormal findings of blood chemistry; I12.0 Hypertensive chronic kidney disease with stage 5 chronic kidney disease or end stage renal disease; N18.6 End stage renal disease

== ENCOUNTER 2017-11-27 06:02 | Day surgery (SDC) | payer MEDICARE, MEDICAID ==
[~2017-11-27] VITALS: Ht 177.8 cm; Wt 84.1 kg
--- NOTE | ~2017-11-27 | OP ---
PATIENT NAME: NATALY SURESH JR MEDICAL RECORD: [id number] :56 LOCATION:D.OPS ADMISSION DATE: SURGEON: YVONNE OJEDA MD DATE OF OPERATION: 11/27/2017 PREOPERATIVE DIAGNOSES: 1. Biliary dyskinesia. 2. Diabetes mellitus. 3. Hypertension. 4. Stage IV chronic kidney disease. 5. Anemia of chronic kidney disease. 6. Coronary artery disease. POSTOPERATIVE DIAGNOSES: 1 Biliary dyskinesia. 2. Diabetes mellitus. 3. Hypertension. 4. Stage IV chronic kidney disease. 5. Anemia of chronic kidney disease. 6. Coronary artery disease. PROCEDURE: Laparoscopic cholecystectomy. SURGEON: Yvonne Ojeda MD REPORT OF PROCEDURE: The patient's abdomen was prepped and draped in sterile fashion. A cutdown was made on the superior aspect of the umbilicus and 0 Vicryls were placed on the fascia bilaterally and the fascia was incised with 15-blade. I then bluntly entered the peritoneal cavity and placed a 12-mm Fermín port. Under direct visualization, a 5-mm trocar was placed in the epigastrium and 2 more 5-mm trocars were placed in the right subcostal region. The gallbladder was grasped and elevated. The cystic artery and cystic duct were dissected free and these were clipped proximally and distally and ligated in standard fashion. The gallbladder was taken off the liver bed using electrocautery and placed in the right upper quadrant. Any bleeding from the liver bed was then treated with electrocautery. At this point, the ports and insufflation were then removed and the gallbladder was taken out through the umbilicus. The umbilical fascia was closed with interrupted 0 Vicryls times 3. The wounds were irrigated out with normal saline and infused with 10 mL of 0.25% Marcaine with epinephrine. The skin incisions were all closed with subcutaneous 5-0 Monocryl and dressed appropriately. COMPLICATIONS: None. CONDITION: Stable. ANESTHESIA: General endotracheal and local. BLOOD LOSS: Minimal. TRANSINT:[id number] Voice Confirmation ID: [id number] DOCUMENT ID: [id number] OPERATIVE REPORT [id number] NATALY SURESH JR YVONNE OJEDA MD at 1413 CC: [id number] DICTATION DATE: 11/27/17 1009 TARE WEIGHER: 11/27/17 1239 [facility] 11/27/17 [facility] [address] [place] [address]
--- NOTE | ~2017-11-27 | CN ---
PATIENT NAME:NATALY SURESH JR MEDICAL RECORD: [id number] : 56 LOCATION:D.[facility] ADMIT DATE: ACCOUNT: [id number] CONSULTING PHYSICIAN: MITCHELL LUNDY MD REFERRING PHYSICIAN: YVONNE OJEDA MD DATE OF CONSULTATION: 11/27/2017 Cardiology Consult DATE OF SERVICE: 11/27/2017 DIAGNOSES: 1. Abnormal ECG. 2. Diabetes. 3. End-stage renal failure, on dialysis. 4. Hypertension. HISTORY OF PRESENT ILLNESS: This is a gentleman who presented for laparoscopic cholecystectomy, his EKG was abnormal at baseline with inferior ischemic changes. It became more abnormal extending to the lateral region. He is not having any chest pain or chest discomfort, has no history of chest pain, chest discomfort, no history of cardiac workup. He does have multiple risk factors as above. REVIEW OF SYSTEMS: The patient reports easy bruising but reports no swollen glands. The patient reports no fever, no night sweats, no significant weight gain, no significant weight loss. No significant exercise tolerance. The patient reports no dry eyes, no irritation, no vision change. Patient reports no difficulty hearing and no ear pain. Patient reports no frequent nose bleeds or nose and sinus problems. Patient reports on arm pain on exertion. No shortness of breath while lying down. No history of heart murmur. Patient reports no cough, no wheezing or coughing up blood. Patient reports no abdominal pain, no vomiting. Normal appetite. No diarrhea and not vomiting blood. No nausea and no constipation. Patient reports no incontinence. No difficulty urinating. No hematuria. No increased frequency. Patient reports no muscle aches. No weakness, no arthralgias, no back pain. No swelling of the extremities. Patient reports no abnormal mole, no jaundice, no rashes. Reports no loss of consciousness. No weakness and no numbness. No seizures, dizziness, or headaches. The patient reports no depression, no sleep disturbance, feeling safe in a relationship and no alcohol abuse. Patient reports on fatigue. Reports no runny nose or sinus pressure. No itching, no hives, and no frequent sneezing. PHYSICAL EXAMINATION: GENERAL APPEARANCE: Well-nourished, well-developed, appears stated age. Level of distress, comfortable. PSYCHIATRIC: Mental status, alert, normal affect. Orientation, oriented to time, place and person. EYES: Lids and conjunctiva, noninjected. No discharge, no pallor. ENT: Lips, teeth, gums, normal dentition. Oropharynx, no cyanosis, no pallor. NECK: Carotid arteries, bilateral normal upstroke, no bruits, no thrills. JUGULAR VEINS: No jugular venous pressure or distention. CERVICAL LYMPH NODES: Nontender, nonenlarged. THYROID: Not enlarged. Nontender. No nodules. LUNGS: Respiratory effort, unlabored. CONSULT REPORT [id number] NATALY SURESH JR CHEST: Normal curvature. No thoracic deformity. No chest wall tenderness. Percussion, resonant. Auscultation, clear. No wheezes, no rales, no rhonchi. CARDIOVASCULAR: Precordial exam, nondisplaced. No heaves or pericardial thrills. Rate and rhythm, regular. Heart sounds, normal S1, normal S2. No S3, no gallop, no rub. Systolic murmur, not heard. Diastolic murmur, not heard. EXTREMITIES: No cyanosis, no edema. Peripheral pulses, full and equal in all extremities, except as noted. No bruits appreciated. ABDOMEN: Soft, nondistended. Normal aorta. No bruit. Nontender. No masses. Liver, nontender, no hepatomegaly. Spleen, nontender, no splenomegaly. MUSCULOSKELETAL: No joint tenderness. No joint swelling. No erythema. NEUROLOGICAL: Normal gait, normal strength, normal tone. SKIN: Warm and dry. OVERALL IMPRESSION: Most likely he does have hemodynamically significant coronary artery disease. We will schedule for coronary angiography next week. Further care depends upon findings of the angiography. TRANSINT:[id number] Voice Confirmation ID: [id number] DOCUMENT ID: [id number] MITCHELL LUNDY MD at 1056 CC: [id number] DICTATION DATE: 11/27/17 1206 SUPERVISOR CORE SHOP: 11/27/17 1305 [facility] 11/27/17 [place] [id number] [place] [id number]
[2017-11-27 07:15] LABS: BASOPHILS 0.8 % (0-2); EOSINOPHILS 6.2 % (0-7); HEMATOCRIT 32.4 % (42.0-54.0); HEMOGLOBIN 10.8 g/dL (13.5-17.5); IMMATURE GRANULOCYTES 0.3 % (0-5); LYMPHOCYTES 31.4 % (15-50); MCHC 33.3 g/dL (31.0-37.0); MCV 93.1 fL (80.0-100.0); MEAN PLATELET VOLUME 10.3 fL (7.4-10.4); NEUTROPHILS 52.3 % (40-80); PLATELET COUNT 188 10x3/uL (130-400); RBC 3.48 10x6/uL (4.20-6.10); RDW 14.9 % (11.5-14.5); WBC 6.4 10x3/uL (4.8-10.8)
[2017-11-27] MEDS ORDERED: NIFEDIPINE ER30 MG (07:19)
[2017-11-27 07:25] VITALS: Ht 177.8 cm; Wt 84.1 kg
[2017-11-27 07:27] LABS: ANION GAP 15.4 mmol/L (8-16); CALCIUM 9.3 mg/dL (8.5-10.1); CARBON DIOXIDE 27.8 mmol/L (21.0-32.0); CREATININE - SERUM 6.4 mg/dL (0.6-1.3); POTASSIUM - SERUM 4.2 mmol/L (3.5-5.1)
[2017-11-27 07:30] LABS: INR 1.05 (0.85-1.17); PROTIME 13.3 SECONDS (11.6-15.0)
[2017-11-27 08:16] LABS: APTT 36.7 SECONDS (22.8-39.4)
[2017-11-27] MEDS ORDERED: HYDROCODONE-APA1 TAB PO (10:05)
== END 2017-11-27 12:50 | disposition home or self-care (01) ==
LOC: D.OPS 06:02 → D.PAN 11:30 → D.OPS 12:50
PROVIDERS: Surgery
DX: K82.8 Other specified diseases of gallbladder (principal); E11.9 Type 2 diabetes mellitus without complications; I10 Essential (primary) hypertension; E11.22 Type 2 diabetes mellitus with diabetic chronic kidney disease; I12.9 Hypertensive chronic kidney disease with stage 1 through stage 4 chronic kidney disease, or unspecified chronic kidney disease; N18.4 Chronic kidney disease, stage 4 (severe); Z99.2 Dependence on renal dialysis; D63.1 Anemia in chronic kidney disease; I25.10 Atherosclerotic heart disease of native coronary artery without angina pectoris; Z01.812 Encounter for preprocedural laboratory examination

== ENCOUNTER 2017-12-04 07:57 | Outpatient (CLI) | payer MEDICARE, MEDICAID ==
[~2017-12-04] VITALS: Ht 177.8 cm; Wt 84.1 kg
--- NOTE | ~2017-12-04 | OP ---
PATIENT NAME: NATALY SURESH JR MEDICAL RECORD: [id number] :56 LOCATION:D.CAT ADMISSION DATE: SURGEON: MITCHELL LUNDY MD DATE OF OPERATION: 12/04/2017 PROCEDURES: 1. PTCA stent left circumflex. 2. Left heart catheterization. 3. Selective coronary angiography. 4. Left ventriculogram. 5. Intravascular ultrasound of the LAD. DESCRIPTION OF PROCEDURE: After informed consent was obtained and after detailed explanation of risks and benefits as well as alternative therapies, the patient elected to proceed with angiogram and angioplasty. The right femoral area was prepped and draped in normal sterile fashion. Right femoral artery was cannulated via modified Seldinger technique with placement of 6-Telugu sheath. All catheters exchanged through the sheath. FINDINGS: The left ventriculogram was performed in standard 30-degree KAY view reveals global hypokinesis throughout all segments. Overall ejection fraction is 30%. SELECTIVE CORONARY ANGIOGRAPHY: 1. Left main is with no significant angiographic disease. 2. Left anterior descending has moderate irregularities, but no flow-limiting stenosis. Intravascular ultrasound reveals there is no stenosis greater than 30%. 3. The left circumflex has 90% stenosis in the mid vessel. 4. The right coronary artery is small, nondominant with no significant disease. PTCA STENT OF THE LEFT CIRCUMFLEX: The stent used 2.75 x 22 and 2.75 x 15, both Dami stents. Result was 0% residual stenosis. OVERALL IMPRESSION: Successful percutaneous transluminal angioplasty stent of the left circumflex going from 90% initial stenosis to 0% residual stenosis. TRANSINT:[id number] Voice Confirmation ID: [id number] DOCUMENT ID: [id number] MITCHELL LUNDY MD at 1056 CC: [id number] DICTATION DATE: 12/04/17 1043 MACHINE CLOTH EXAMINER: 12/04/17 1135 [facility] CLI 12/04/17 [place] [id number]
--- NOTE | ~2017-12-04 | HEMODYNAMI ---
PATIENT:NATALY SURESH JR MEDICAL RECORD: [id number] : 56 LOCATION:DJOSY ADMISSION DATE: 12/04/17 Generatedon:12/04/201710:47 Patient name: NATALY SURESH Patient #: [id number] SSN: : 1960 Date of study: 12/04/2017 Page: Of Hemodynamic Procedure Report Patient Data Patient Demographics Procedure consent was obtained First Name: NATALY Gender: Male Last Name: DEMETRICE Suffix: [facility] Initial: SHARMAINE : 1960 Patient #: [id number] Age: 57 year(s) Race: Black Additional ID: [id number] Contact details Address: [address] [place] [address] State: [place] [facility] [place]: [address] Past Medical History Allergies: No known allergies Admission Admission Data Admission Date: 12/04/2017 Admission Time: 7:57 Lab Results Lab Result Date: 12/04/2017 Lab Result Time: 9:00 Biochemistry Name Units Result Min Max BUN mg/dl 40 --(----)-* 7 18 Creatinine mg/dl 8 --(----)-* 0.6 1.3 CBC Name Units Result Min Max Hematocrit % 32 *-(----)-- 42 54 Hemoglobin g/dl 10.9 *-(----)-- 13.5 17.5 Procedure Procedure Types Cath Procedure Diagnostic Procedure C [facility] w/Coronaries FFR/IVUS Intra-Coronary IVUS Initial Sedation Charges Moderate Sedation up to 15 minutes PCI Procedure Coronary Stent Coronary Stent Initial Procedure Description Procedure Date Procedure Date: 12/04/2017 Procedure Start Time: 10:26 Procedure End Time: 10:47 Procedure Staff Name Function Abraham Ny MD Performing Physician Juan Garcia RT Monitor Les Jesus RN Nurse Alcira Mendoza RT Scrub Procedure Data Cath Procedure Fluoroscopy Diagnostic fluoroscopy Total fluoroscopy Time: 4 time: 4 min min Diagnostic fluoroscopy Total fluoroscopy dose: 810 dose: 810 mGy mGy Contrast Material Contrast Material Type Amount (ml) Isovue 300 100 Entry Location Entry Primary Successful Side Size Upsize Upsize Entry Closure Succes sful Closure Location (Fr) 1 (Fr) 2 (Fr) Remarks Device Remarks Femoral Right 5 Fr 6 Fr Exoseal artery Short Estimated blood loss: 10 ml Diagnostic catheters Device Type Used For End Catheter Placement MULTIPACK Pigtail 5 Fr Procedure catheter MULTIPACK JL 4.0 5Fr Procedure catheter MULTIPACK 3DRC 5Fr Procedure catheter Procedure Complications No complications Procedure Medications Medication Administration Route Dosage 0.9% NaCl I.V. 30 ml/hr Oxygen 8 l/min Heparin Flush Bag added to field 2 bags (1000units/500ml NS) Lidocaine 2% added to field 20 Versed I.V. 2 mg Fentanyl I.V. 100 mcg Heparin Bolus I.V. 4000 units Integrilin (Bolus I.V. 7.3 ml 2mg/ml) Integrilin (Bolus wasted 2.7 ml 2mg/ml) Plavix P.O. 600 mg Hemodynamics Rest HGB: 10.9 (g/dl) Heart Rate: 77 (bpm) Snapshots Pre Cath Intra NCS Post Cath Vital Signs Time Heart Resp SPO2 etCO2 NIBP (mmHg) Rhythm Pain Sedation Rate (ipm) (%) (mmHg) Status Level (bpm) 10:08:55 90 21 96 0 204/120(176) NSR 0 (11) 10(A) , No pain 10:13:48 80 13 100 0 168/102(140) NSR 0 (11) 10(A) , No pain 10:18:32 75 13 100 0 147/87(128) NSR 0 (11) 10(A) , No pain 10:23:13 75 15 100 0 144/90(118) NSR 0 (11) 10(A) , No pain 10:28:51 78 18 100 0 193/112(172) NSR 0 (11) 9(A) , No pain 10:33:50 80 18 100 0 176/117(162) NSR 0 (11) 9(A) , No pain 10:38:47 80 17 100 0 184/111(154) NSR 0 (11) 10(A) , No pain 10:43:46 86 13 0 Measuring NSR 0 (11) 9(A) , No pain 10:45:10 87 24 0 Out of range NSR 0 (11) 9(A) , No pain Medications Time Medication Route Dose Verified Delivered Reason Notes Effectiveness by by 10:10:47 0.9% NaCl I.V. 30 Les Les Per physician ml/hr Edin Jesus RN RN 10:11:31 Oxygen simple 8 Les Les Per physician mask l/min Edin Jesus RN RN 10:11:44 Heparin Flush added 2 Les Les used for Bag to bags Edin Jesus procedure (1000units/500ml field RN RN NS) 10:12:00 Lidocaine 2% added 20ml Les Les for local to vial Edin Jesus anesthetic field RN RN 10:23:37 Versed I.V. 2 mg Les Les for sedation Edin Jesus RN RN 10:23:46 Fentanyl I.V. 100 Les Les for sedation mcg Edin Jesus RN RN 10:33:19 Heparin Bolus I.V. 4000 Les Les for units Edin Jesus anticoagulation RN RN 10:35:22 Integrilin I.V. 7.3 Les Les for (Bolus 2mg/ml) ml Edin Jesus antiplatelet RN RN therapy 10:35:38 Integrilin wasted 2.7 Les Les to sharp's (Bolus 2mg/ml) ml Edin Jesus RN RN 10:41:32 Plavix P.O. 600 Les Les for mg Edin Jesus antiplatelet RN RN therapy Procedure Log Time Note 9:54:12 Time tracking: Regular hours 9:54:17 Plan of Care:Hemodynamics will remain stable., Cardiac rhythm will remain stable., Comfort level will be maintained., Respiratory function will remain adequate., Patient/ family verbilizes understanding of procedure., Procedure tolerated without complication., Recovers from procedure without complications.. 9:54:32 Les Jesus RN sent for patient. Start room use. 9:59:24 Patient received from Pre/Post Procedure Room to CCL 1 Alert and oriented. Tansferred to table in Supine position. 9:59:25 Warm blankets applied, and albino hugger turned on for patient comfort. 9:59:26 Correct patient and procedure confirmed by team. 9:59:46 Signed procedure consent form obtained from patient. 9:59:48 ECG and BP/O2 sat monitors applied to patient. 10:06:54 Vital chart was started 10:10:47 0.9% NaCl 30 ml/hr I.V. was administered by Les Jesus RN; Per physician; 10:11:31 Oxygen 8 l/min simple mask was administered by Les Jesus RN; Per physician; 10:11:44 Heparin Flush Bag (1000units/500ml NS) 2 bags added to field was administered by Les Jesus RN; used for procedure; 10:12:00 Lidocaine 2% 20ml vial added to field was administered by Les Jesus RN; for local anesthetic; 10:15:15 Baseline sample Acquired. 10:15:21 Rhythm: sinus rhythm 10:15:23 Full Disclosure recording started 10:17:00 H&P Date Dictated: 11/27/2017 Within 30 days and on chart., H&P Addendum completed by physician on day of procedure. (MUST COMPLETE FOR ALL OUTPATIENTS). 10:17:02 Pre-procedure instructions explained to patient. 10:17:02 Pre-op teaching completed and patient verbalized understanding. 10:17:05 Family in waiting room. 10:17:07 Patient NPO since Midnight. 10:17:29 Patient allergic to No known allergies 10:17:40 Is the patient allergic to Iodine/contrast media? No. 10:17:54 Is patient on blood thinner?No 10:17:55 Patient diabetic? Yes. 10:17:56 If diabetic: On Metformin? No 10:18:00 Previous problem with sedation/anesthesia? No ? 10:18:01 Snore? No 10:18:01 Sleep apnea? No 10:18:02 Deviated septum? No 10:18:03 Opens mouth fully? Yes 10:18:03 Sticks out tongue? Yes 10:18:05 Airway obstruction? No ? 10:18:07 Dentures? No ? 10:18:09 Pre procedure: right dorsailis pedis pulse 2+ Normal; easily identifiable; not easily obliterated 10:18:11 Patient pain scale 0/10 ?. 10:18:14 IV patent on arrival in right forearm with 0.9% NaCl at [facility]. 10:18:41 Lab Result : Creatinine 8 mg/dl 10:18:41 Lab Result : BUN 40 mg/dl 10:18:41 Lab Result : Hemoglobin 10.9 g/dl 10:18:41 Lab Result : Hematocrit 32 % 10:18:44 Zero performed for pressure channel P1 10:18:47 Zero performed for pressure channel P1 10:19:00 Lab results completed and on chart. 10:19:09 Right groin area was prepped with chlora-prep and draped in sterile fashion 10:19:45 Alarms reviewed by R. N. 10:19:46 Sharps counted by scrub and verified by R.N. 10:19:49 Use device set Femoral Dx 10:19:50 ACIST Syringe (21167) opened to sterile field. 10:19:51 Bag Decanter (2002S) opened to sterile field. 10:19:52 Medline Cath Pack ([id number]) opened to sterile field. 10:19:54 ACIST Hand Control (73123) opened to sterile field. 10:19:55 ACIST Manifold (10668) opened to sterile field. 10:19:56 Tegaderm 4 x 4 (1626W) opened to sterile field. 10:19:57 PERCUTANEOUS ENTRY 19GA needle opened to sterile field. 10:19:59 DIAGNOSTIC WIRE .035 260cm J wire (431968) opened to sterile field. 10:20:05 SHEATH 5Fr Prelude ([id number]) opened to sterile field. 10:20:13 Physician arrived 10:20:14 --------ALL STOP TIME OUT------ 10:20:14 Final Timeout: patient, procedure, and site verified with staff and physician. All members of the team are in agreement. 10:20:16 Right groin site verified by team. 10:20:18 Physical assessment completed. ASA score P 2 - A patient with mild systemic disease as per Abraham Ny MD. 10:20:20 Sedation plan: IV Moderate Sedation Medication:Versed, Fentanyl 10:23:37 Versed 2 mg I.V. was administered by Les Jesus RN; for sedation; 10:23:46 Fentanyl 100 mcg I.V. was administered by Les Jesus RN; for sedation; 10:26:01 Procedure started. 10:26:03 Local anesthetic to right femoral artery with Lidocaine 2% by Abraham Ny MD.INITIAL ACCESS ONLY 10:27:03 A 5 Fr sheath was inserted into the Right Femoral artery 10:27:52 DIAGNOSTIC Multipack 5Fr catheter set (FC1096) opened to sterile field. 10:27:56 A MULTIPACK Pigtail 5 Fr catheter was advanced over the wire and used for Procedure. 10:28:04 LV gram done using KAY 10:28:06 Injector settings: Ml/sec: 10, Volume: 20, 10:28:11 EF : 30 % 10:28:14 Catheter exchanged over wire. 10:28:20 A MULTIPACK JL 4.0 5Fr catheter was advanced over the wire and used for Procedure. 10:28:44 LCA angiography performed. 10:29:27 SHEATH 6Fr Prelude ([id number]) opened to sterile field. 10:29:28 INFLATOR Merit BasixCompak (FA2134) opened to sterile field. 10:29:29 [place] IVUS Catheter (62451J) opened to sterile field. 10:29:45 CHOICE PT Extra Support 182cm wire ([id number]) opened to sterile field. 10:29:50 Catheter exchanged over wire. 10:29:55 A MULTIPACK 3DRC 5Fr catheter was advanced over the wire and used for Procedure. 10:30:01 RCA angiography performed. 10:30:14 Catheter removed. 10:30:21 Sheath upsized to a 6 Fr Short. 10:31:58 GUIDE 6FR XBLAD 4.0 catheter ([id number]) opened to sterile field. 10:32:08 6 Fr xblad 4 guide catheter was inserted over the wire 10:32:16 choice pt wire advanced. 10:32:37 Wire advanced across lesion. 10:33:02 IVUS catheter advanced over wire. 10:33:18 IVUS pass to LAD lesion performed. 10:33:19 Heparin Bolus 4000 units I.V. was administered by Les Jesus RN; for anticoagulation; 10:35:08 IVUS catheter removed over wire. 10:35:14 Wire redirected to cx. 10:35:22 Integrilin (Bolus 2mg/ml) 7.3 ml I.V. was administered by Les Jesus RN; for antiplatelet therapy; 10:35:25 Wire advanced across lesion. 10:35:38 Integrilin (Bolus 2mg/ml) 2.7 ml wasted was administered by Les Jesus RN; to sharp's; 10:37:03 Place stent Inflation Number: 1 A PHAM RX 2.75 x 22 stent ([id number]) was prepped and advanced across the Prox CX. The stent was deployed at 17 CHANEL for 0:10 (min:sec). 10:37:31 Stent catheter was removed intact over wire. 10:38:41 Place stent Inflation Number: 1 A PHAM RX 2.75 x 15 stent ([id number]) was prepped and advanced across the Mid CX. The stent was deployed at 17 CHANEL for 0:10 (min:sec). 10:39:25 Stent catheter was removed intact over wire. 10:39:26 Wire removed. 10:39:28 Guide catheter removed. 10:39:35 EXOSEAL 6Fr (EX600) opened to sterile field. 10:39:42 Sheath removed intact; hemostasis achieved with Exoseal to the Right Femoral artery. 10:39:44 Procedure ended.(Physican Out) 10:41:32 Plavix 600 mg P.O. was administered by Les Jesus RN; for antiplatelet therapy; 10:41:40 Fluoroscopy time 04.00 minutes. 10:41:44 Flurop Dose total: 810 10:41:44 Fluoroscopy dose: 810 mGy 10:41:47 Contrast amount:Isovue 300 100ml. 10:41:49 Sharps counted by scrub and verified by R.N. 10:41:51 Insertion/operative site no bleeding no hematoma. 10:41:53 Post-op/insertion site Right Femoral artery dressed using a 4 x 4 and Tegaderm. 10:44:30 Post right femoral artery:stable, soft, clean and dry 10:44:32 Post Procedure Pulses reassessed and unchanged 10:44:34 Post-procedure physical assessment completed. ASA score P 2 - A patient with mild systemic disease as per Abraham Ny MD. 10:44:36 Post procedure rhythm: unchanged. 10:44:39 Estimated blood loss: 10 ml 10:44:41 Post procedure instruction explained to patient.Patient verbalizes understanding. 10:44:41 Patient needs reinforcement of post procedure teaching. 10:44:50 Procedure type changed to Cath procedure, Diagnostic procedure, LHC, LHC w/Coronaries, FFR/IVUS, Intra-Coronary IVUS Initial, Sedation Charges, Moderate Sedation up to 15 minutes, PCI procedure, Coronary Stent, Coronary Stent Initial 10:47:13 Procedure and supply charges have been captured, reviewed, submitted and are correct. 10:47:18 Procedure Complication : No complications 10:47:20 Vital chart was stopped 10:47:21 See physician's report for complete and final results. 10:47:22 Report given to Pre/Post Procedure Room. 10:47:25 Patient transfered to Pre/Post Procedure Room with Stretcher. 10:47:27 Procedure ended. 10:47:27 Full Disclosure recording stopped 10:47:31 End room use (Document Last) Intervention Summary Intervention Notes Time ActionType Lesion and Equipment Used Action# Pressure Duration Attributes 10:37:03 Place stent Prox CX PHAM RX 2.75 x 1 17 00:10 22 stent ([id number]) 10:38:41 Place stent Mid CX PHAM RX 2.75 x 1 17 00:10 15 stent ([id number]) Device Usage Item Name Manufacture Quantity Catalog Number Hospital Part Current M inimal Lot# / Charge Number Stock Stock Serial# Code ACIST Syringe Acist 1 32416 540479 006946 877902 2 0 (01387) Medical Systems Inc Bag Decanter Microtek 1 2002S 124611 84345 021333 5 (2001S) Medical Inc. Medline Cath Cardinal 1 [id number] 772344 35321 736785 5 Pack Health ([id number]) ACIST Hand Acist 1 22745 243540 387975 790722 5 Control Medical (31170) Systems Inc ACIST Manifold Acist 1 85461 297226 156332 374594 5 (11430) Medical Systems Inc Tegaderm 4 x 4 3M 1 1626W 603802 998190 513715 5 (1626W) PERCUTANEOUS Cook Medical 1 S34885 007869 980227 5 ENTRY 19GA needle DIAGNOSTIC [address] Praneeth 1 146523 328146 904441 919674 3 0 WIRE .035 260cm J wire (276512) SHEATH 5Fr Merit 1 [id number] 597133 242172 795157 5 Prelude Medical ([id number]) DIAGNOSTIC Cardinal 1 KB8558 285766 67192 373640 3 0 Multipack 5Fr Health catheter set (IE5985) MULTIPACK Cardinal 1 554113 5 Pigtail 5 Fr Health catheter MULTIPACK JL Cardinal 1 122244 5 4.0 5Fr Health catheter SHEATH 6Fr Merit 1 [id number] 372177 335192 516663 5 Prelude Medical ([id number]) INFLATOR Merit Merit 1 FF5897 429800 759533 602914 1 5 [facility] Medical (JS9217) [place] 1 91296V 271584 873534 333112 8 [place] IVUS Catheter (46743I) CHOICE PT [place] 1 [id number] 415260 629900 591021 5 Extra Support Scientific 182cm wire ([id number]) MULTIPACK 3DRC Cardinal 1 142847 5 5Fr catheter Health GUIDE 6FR Cardinal 1 [id number] 947036 766033 596501 3 XBLAD 4.0 Health catheter ([id number]) PHAM RX 2.75 x Medtronic 1 [id number] 055903 4491596 182611 5 [id number] 22 stent ([id number]) PHAM RX 2.75 x Medtronic 1 [id number] 184075 3492137 619940 5 [id number] 15 stent ([id number]) EXOSEAL 6Fr Cardinal 1 EX600 650626 843678 629097 1 0 (EX600) Health Signature Audit [place] Stage Time Signature Unsigned Intra-Procedure 12/04/2017 Juan Garcia 10:47:55 AM RT(R) Signatures Monitor : Juan Garcia RT Signature : Date : Time : [facility] [address] [facility] [place] [address]
[~2017-12-04 07:57] MED LIST changes: +HYDROCODONE-APA1 TAB PO; +NIFEDIPINE ER30 MG
[2017-12-04 09:19] VITALS: BP 196/118; Ht 177.8 cm; Wt 84.1 kg
[2017-12-04 09:32] LABS: BASOPHILS 0.9 % (0-2); EOSINOPHILS 6.8 % (0-7); HEMOGLOBIN 10.9 g/dL (13.5-17.5); IMMATURE GRANULOCYTES 0.2 % (0-5); LYMPHOCYTES 27.3 % (15-50); MCH 31.2 pg (26.0-34.0); MCHC 34.1 g/dL (31.0-37.0); MCV 91.7 fL (80.0-100.0); MONOCYTES 7.4 % (2-11); NEUTROPHILS 57.4 % (40-80); PLATELET COUNT 197 10x3/uL (130-400); RBC 3.49 10x6/uL (4.20-6.10); RDW 13.9 % (11.5-14.5)
[2017-12-04 09:40] LABS: ANION GAP 16.6 mmol/L (8-16); CALCIUM 9.6 mg/dL (8.5-10.1); POTASSIUM - SERUM 4.6 mmol/L (3.5-5.1)
[2017-12-04] MEDS ORDERED: BAYER CHEWABLE81 MG PO (11:19)
[2017-12-04] MEDS ORDERED: PLAVIX75 MG PO (11:19)
== END 2017-12-04 15:00 | disposition home or self-care (01) ==
LOC: D.CATH 07:57
PROVIDERS: Internal Medicine Interventional Cardiology
DX: I25.119 Atherosclerotic heart disease of native coronary artery with unspecified angina pectoris (principal); Z01.812 Encounter for preprocedural laboratory examination
CPT/HCPCS: 92978; 93458; C9600

== ENCOUNTER 2017-12-10 23:38 | Emergency (ER) | payer MEDICARE, MEDICAID ==
[2017-12-04 09:19] VITALS: BMI 26.6
[~2017-12-10 23:38] MED LIST changes: +BAYER CHEWABLE81 MG PO; +PLAVIX75 MG PO
[2017-12-11 00:09] LABS: BASOPHILS 1.7 % (0-2); EOSINOPHILS 7.1 % (0-7); HEMATOCRIT 31.5 % (42.0-54.0); HEMOGLOBIN 10.7 g/dL (13.5-17.5); IMMATURE GRANULOCYTES 0.4 % (0-5); LYMPHOCYTES 25.4 % (15-50); MCH 31.5 pg (26.0-34.0); MCV 92.6 fL (80.0-100.0); MEAN PLATELET VOLUME 10.1 fL (7.4-10.4); NEUTROPHILS 48.4 % (40-80); PLATELET COUNT 224 10x3/uL (130-400); WBC 5.4 10x3/uL (4.8-10.8)
[2017-12-11 00:21] LABS: ALBUMIN 3.4 g/dL (3.4-5.0); ANION GAP 14.3 mmol/L (8-16); BILIRUBIN - TOTAL 0.4 mg/dL (0.2-1.3); CALCIUM 9.1 mg/dL (8.5-10.1); CREATININE - SERUM 6.3 mg/dL (0.6-1.3); POTASSIUM - SERUM 4.3 mmol/L (3.5-5.1); PROTEIN - SERUM 8.2 g/dL (6.4-8.2)
== END 2017-12-11 02:45 | disposition home or self-care (01) ==
LOC: D.ER 23:38
PROVIDERS: Emergency Medicine
DX: R10.13 Epigastric pain (principal); Z86.79 Personal history of other diseases of the circulatory system; I12.0 Hypertensive chronic kidney disease with stage 5 chronic kidney disease or end stage renal disease; N18.6 End stage renal disease; Z99.2 Dependence on renal dialysis

== ENCOUNTER 2017-12-31 10:39 | Emergency (ER) | payer MEDICARE, MEDICAID ==
[2017-12-04 09:19] VITALS: BMI 26.6
--- NOTE | ~2017-12-31 | CN ---
PATIENT NAME:NATALY SURESH JR MEDICAL RECORD: [id number] : 56 LOCATION:D.ER ADMIT DATE: ACCOUNT: [id number] CONSULTING PHYSICIAN: MITCHELL LUNDY MD REFERRING PHYSICIAN: JODY MCLEAN MD DATE OF CONSULTATION: 12/31/2017 DIAGNOSES: 1. Chest pain, right side around dialysis port. 2. Coronary artery disease. 3. Previous percutaneous transluminal coronary angioplasty stent. 4. End-stage renal failure, on dialysis. 5. Hypertension. 6. Diabetes. 7. Abnormal ECG. HISTORY OF PRESENT ILLNESS: This is a gentleman who is known to us, status post PTCA stent to the only significant blockage that he had December 04. He now complains of chest pain, but only around the dialysis port. It is on the right side of his chest. He has not had left-sided chest pain like that of his previous angina. His hemoglobin is low at 9.5. He has not missed dialysis. His creatinine is 5.4. His troponin is mildly elevated at 1.099. His EKG has no changes. REVIEW OF SYSTEMS: The patient reports easy bruising but reports no swollen glands. The patient reports no fever, no night sweats, no significant weight gain, no significant weight loss. No significant exercise tolerance. The patient reports no dry eyes, no irritation, no vision change. Patient reports no difficulty hearing and no ear pain. Patient reports no frequent nose bleeds or nose and sinus problems. Patient reports on arm pain on exertion. No shortness of breath while lying down. No history of heart murmur. Patient reports no cough, no wheezing or coughing up blood. Patient reports no abdominal pain, no vomiting. Normal appetite. No diarrhea and not vomiting blood. No nausea and no constipation. Patient reports no incontinence. No difficulty urinating. No hematuria. No increased frequency. Patient reports no muscle aches. No weakness, no arthralgias, no back pain. No swelling of the extremities. Patient reports no abnormal mole, no jaundice, no rashes. Reports no loss of consciousness. No weakness and no numbness. No seizures, dizziness, or headaches. The patient reports no depression, no sleep disturbance, feeling safe in a relationship and no alcohol abuse. Patient reports on fatigue. Reports no runny nose or sinus pressure. No itching, no hives, and no frequent sneezing. PHYSICAL EXAMINATION: GENERAL APPEARANCE: Well-nourished, well-developed, appears stated age. Level of distress, comfortable. PSYCHIATRIC: Mental status, alert, normal affect. Orientation, oriented to time, place and person. EYES: Lids and conjunctiva, noninjected. No discharge, no pallor. ENT: Lips, teeth, gums, normal dentition. Oropharynx, no cyanosis, no pallor. NECK: Carotid arteries, bilateral normal upstroke, no bruits, no thrills. JUGULAR VEINS: No jugular venous pressure or distention. CERVICAL LYMPH NODES: Nontender, nonenlarged. THYROID: Not enlarged. Nontender. No nodules. LUNGS: Respiratory effort, unlabored. CONSULT REPORT [id number] NATALY SURESH JR CHEST: Normal curvature. No thoracic deformity. No chest wall tenderness. Percussion, resonant. Auscultation, clear. No wheezes, no rales, no rhonchi. CARDIOVASCULAR: Precordial exam, nondisplaced. No heaves or pericardial thrills. Rate and rhythm, regular. Heart sounds, normal S1, normal S2. No S3, no gallop, no rub. Systolic murmur, not heard. Diastolic murmur, not heard. EXTREMITIES: No cyanosis, no edema. Peripheral pulses, full and equal in all extremities, except as noted. No bruits appreciated. ABDOMEN: Soft, nondistended. Normal aorta. No bruit. Nontender. No masses. Liver, nontender, no hepatomegaly. Spleen, nontender, no splenomegaly. MUSCULOSKELETAL: No joint tenderness. No joint swelling. No erythema. NEUROLOGICAL: Normal gait, normal strength, normal tone. SKIN: Warm and dry. OVERALL IMPRESSION: Chest pain is musculoskeletal from the dialysis for if this is not cardiac in etiology at this time. No other cardiac workup or treatment is necessary. TRANSINT:[id number] Voice Confirmation ID: [id number] DOCUMENT ID: [id number] MITCHELL LUNDY MD at 1725 CC: [id number] DICTATION DATE: 12/31/17 1201 CELL BIOLOGY SCIENTIST: 12/31/17 1229 [facility] [address] [place] [address]
[2017-12-31 11:06] LABS: BASOPHILS 0.8 % (0-2); EOSINOPHILS 5.6 % (0-7); HEMATOCRIT 28.8 % (42.0-54.0); HEMOGLOBIN 9.5 g/dL (13.5-17.5); IMMATURE GRANULOCYTES 0.1 % (0-5); MCH 30.6 pg (26.0-34.0); MCV 92.9 fL (80.0-100.0); MEAN PLATELET VOLUME 10.2 fL (7.4-10.4); MONOCYTES 13.1 % (2-11); NEUTROPHILS 59.4 % (40-80); PLATELET COUNT 191 10x3/uL (130-400); RDW 13.2 % (11.5-14.5); WBC 7.5 10x3/uL (4.8-10.8)
[2017-12-31 11:31] LABS: ALKALINE PHOSPHATASE 75 U/L (46-116); ALT (SGPT) 17 U/L (10-68); BILIRUBIN - TOTAL 0.38 mg/dL (0.2-1.3); CALC OSMOLALITY 274 mosm/kg (275-300); CALCIUM 8.9 mg/dL (8.5-10.1); CARBON DIOXIDE 25.5 mmol/L (21.0-32.0); CHLORIDE - SERUM 99 mmol/L (98-107); CREATININE - SERUM 5.4 mg/dL (0.6-1.3); GLUCOSE 124 mg/dL (74-106); POTASSIUM - SERUM 3.7 mmol/L (3.5-5.1); PROTEIN - SERUM 7.6 g/dL (6.4-8.2); SODIUM 134 mmol/L (136-145); UREA NITROGEN 29 mg/dL (7-18); eGFR NON AFRICAN AMERICAN 12 mL/min (90-120)
[2017-12-31 11:46] LABS: CHOLESTEROL, TOTAL 148 mg/dL (0-200); CKMB 5.4 U/L (0.0-3.6); CREATINE KINASE 192 UL (21-232); HDL CHOLESTEROL 76 mg/dL (32-96); LDL CHOLESTEROL 67 mg/dL (0-100); LDL-HDL RATIO 0.9 ratio (1.5-3.5); TRIGLYCERIDE 25 mg/dL (30-200)
[2017-12-31 11:52] LABS: TROPONIN-I 1.099 ng/mL (0.000-0.060)
== END 2017-12-31 11:27 | disposition home or self-care (01) ==
LOC: D.ER 10:39
PROVIDERS: Family Medicine
DX: R07.9 Chest pain, unspecified (principal); R10.9 Unspecified abdominal pain

== ENCOUNTER 2018-02-23 08:04 | Inpatient (IN) | payer MEDICARE, MEDICAID ==
[2018-02-23] VITALS (14 sets, daily range): BP systolic 100–227; BP diastolic 69–119
[~2018-02-23] VITALS: Ht 177.8 cm; Wt 80.9 kg
--- NOTE | ~2018-02-23 | EC ---
PATIENT:NATALY SURESH JR DATE OF SERVICE: 02/23/18 SEX: M MEDICAL RECORD: [id number] DATE OF : 56 LOCATION:D.M2 D.211 AGE OF PATIENT: 57 ADMISSION DATE: 02/23/18 REFERRING PHYSICIAN: INTERPRETING PHYSICIAN: JOSR TALLEY MD ECHOCARDIOGRAM REPORT ECHO CHARGES 4 ECHO COMPLETE Date: 02/24 CLINICAL DIAGNOSIS: WI HX OF CAD/STENT/HTN/RENAL ECHOCARDIOGRAPHIC MEASUREMENTS (adult normal given) AC root (d.<3.7cm) 3.7 cm LV Septum d (<1.2 cm> 1.4 cm Valve Excursion 1.6 cm LV Septum (systole) 2.6 cm Left Atria (s.<4.0cm> 4.0 cm LVPW d(<1.2cm) 1.5 cm RV (d.<2.3cm) 5.5 cm LVPW (sytole) 1.6 cm LV diastole(<5.6CM) 4.5 cm MV E-F(>70mm/sec) cm LV systole 2.9 cm LVOT Diameter 1.9 cm MV exc.(>10mm) 2.2 cm Est.ejection fraction (50-75%) % DOPPLER: LVIT cm/sec A 75.0 cm/sec E 67.0 cm/sec LA cm/sec RVSP 23 mmHg LVOT 5 cm/sec AOP1/2T m/s Asc. Ao 102 cm/sec RVOT 67 cm/sec RA cm/sec PA 91 cm/sec AV Gradient Peak 4.13 mmHg AV Mean 1.78 mmHg AV Area 2.5 cm MV Gradient Peak 1.96 mmHg MV Mean 0.79 mmHg MV Area cm COMMENTS: Credit Administration Specialist: Serafin WHITAKER Sensitometrist: Rosana Talley TAPE# PACS Pericardial Effusion N DATE OF SERVICE: PROCEDURE: Transthoracic echocardiogram. FINDINGS: 1. Left ventricle has mild left ventricular hypertrophy. Inflow characteristics consistent with diastolic dysfunction. There are no regional wall motion abnormalities. The ejection fraction is 60%. 2. The left atrium is mildly dilated. 3. The aortic valve is sclerotic without stenosis or aortic insufficiency. ECHOCARDIOGRAM REPORT [id number] NATALY SURESH JR 4. The mitral valve has normal structure and function. No significant mitral regurgitation seen. 5. The tricuspid valve is normal. 6. The right ventricle is moderate to severely dilated. 7. The right atrium is moderately dilated. 8. The pericardium is normal. CONCLUSION: The patient has evidence of hypertensive heart disease, dilated right ventricle with normal function. TRANSINT:[id number] Voice Confirmation ID: [id number] DOCUMENT ID: [id number] JOSR TALLEY MD at 1030 CC: [id number] DICTATION DATE: 02/25/18 1016 FEATHER MIXER: 02/25/18 1103 DIS IN 02/25/18 [facility] [address] [place] [address]
[2018-02-23] MEDS ORDERED: SENSIPAR30 MG PO (08:12)
[2018-02-23 08:48] LABS: BASOPHILS 0.5 % (0-2); EOSINOPHILS 4.4 % (0-7); HEMATOCRIT 33.8 % (42.0-54.0); HEMOGLOBIN 11.4 g/dL (13.5-17.5); IMMATURE GRANULOCYTES 0.3 % (0-5); LYMPHOCYTES 22.3 % (15-50); MCH 31.2 pg (26.0-34.0); MCHC 33.7 g/dL (31.0-37.0); MCV 92.6 fL (80.0-100.0); MEAN PLATELET VOLUME 10.7 fL (7.4-10.4); MONOCYTES 7.4 % (2-11); NEUTROPHILS 65.1 % (40-80); PLATELET COUNT 217 10x3/uL (130-400); RBC 3.65 10x6/uL (4.20-6.10); RDW 13.9 % (11.5-14.5); WBC 7.5 10x3/uL (4.8-10.8)
[2018-02-23 09:01] LABS: INR 1.03 (0.85-1.17); PROTIME 13.1 SECONDS (11.6-15.0)
[2018-02-23 09:02] LABS: ALBUMIN 3.3 g/dL (3.4-5.0); ALKALINE PHOSPHATASE 76 U/L (46-116); ALT (SGPT) 15 U/L (10-68); APTT 33.1 SECONDS (22.8-39.4); CALC OSMOLALITY 290 mosm/kg (275-300); CALCIUM 10.1 mg/dL (8.5-10.1); CARBON DIOXIDE 23.9 mmol/L (21.0-32.0); CHLORIDE - SERUM 100 mmol/L (98-107); CREATININE - SERUM 9.9 mg/dL (0.6-1.3); GLUCOSE 99 mg/dL (74-106); POTASSIUM - SERUM 5.7 mmol/L (3.5-5.1); PROTEIN - SERUM 7.8 g/dL (6.4-8.2); SODIUM 137 mmol/L (136-145); UREA NITROGEN 59 mg/dL (7-18); eGFR NON AFRICAN AMERICAN 6 mL/min (90-120)
[2018-02-23 09:03] LABS: D-DIMER-QUANTITATIVE 0.78 ug/mLFEU (0.20-0.54)
[2018-02-23 09:19] LABS: CKMB 9.9 U/L (0.0-3.6); LIPASE 1231 U/L (73-393)
[2018-02-23 09:22] LABS: TROPONIN-I 1.061 ng/mL (0.000-0.060)
[2018-02-23] MEDS ORDERED: FEXOFENADINE HC60 MG PO (12:18)
[2018-02-23] MEDS ORDERED: KENALOG 0.025%15 G1 (12:19)
[2018-02-23] MEDS ORDERED: NIFEDIPINE ER30 MG (12:20)
[2018-02-23] MEDS ORDERED: LASIX80 MG (12:20)
[2018-02-23] MEDS ORDERED: ZOFRAN4 MG PO (12:21)
[2018-02-23] MEDS ORDERED: ULTRAM50 MG (12:21)
[2018-02-23 14:15] LABS: CKMB 10.1 U/L (0.0-3.6); CREATINE KINASE 168 UL (21-232); TROPONIN-I 1.111 ng/mL (0.000-0.060)
[2018-02-23 20:07] LABS: CKMB 9.1 U/L (0.0-3.6); CREATINE KINASE 154 UL (21-232)
[2018-02-23 20:21] LABS: TROPONIN-I 1.079 ng/mL (0.000-0.060)
[2018-02-24] VITALS (7 sets, daily range): BP systolic 109–141; BP diastolic 64–80; Ht 177.8 cm; Wt 80.9 kg
[2018-02-24 02:03] LABS: CREATINE KINASE 123 UL (21-232)
[2018-02-24 02:05] LABS: TROPONIN-I 0.999 ng/mL (0.000-0.060)
[2018-02-24 05:44] LABS: BASOPHILS 0.9 % (0-2); EOSINOPHILS 4.6 % (0-7); HEMATOCRIT 31.6 % (42.0-54.0); HEMOGLOBIN 10.5 g/dL (13.5-17.5); LYMPHOCYTES 15.7 % (15-50); MCH 30.8 pg (26.0-34.0); MCHC 33.2 g/dL (31.0-37.0); MCV 92.7 fL (80.0-100.0); MEAN PLATELET VOLUME 10.8 fL (7.4-10.4); MONOCYTES 13.4 % (2-11); NEUTROPHILS 65.4 % (40-80); PLATELET COUNT 194 10x3/uL (130-400); RBC 3.41 10x6/uL (4.20-6.10)
[2018-02-24 05:59] LABS: WBC 5.6 10x3/uL (4.8-10.8)
[2018-02-24 06:16] LABS: ALBUMIN 2.8 g/dL (3.4-5.0); ANION GAP 14.3 mmol/L (8-16); BILIRUBIN - TOTAL 0.76 mg/dL (0.2-1.3); CALCIUM 9.3 mg/dL (8.5-10.1); CARBON DIOXIDE 29.4 mmol/L (21.0-32.0); CREATININE - SERUM 7.6 mg/dL (0.6-1.3); POTASSIUM - SERUM 4.7 mmol/L (3.5-5.1)
[2018-02-24 08:53] LABS: CHOL - HDL RATIO 2.1 ratio (2.3-4.9); LDL-HDL RATIO 0.9 ratio (1.5-3.5)
[2018-02-24 12:13] LABS: APPEARANCE HAZY (CLEAR); COLOR YELLOW (YELLOW); SPECIFIC GRAVITY 1.005 (1.005-1.020)
[2018-02-24 12:15] LABS: BILIRUBIN NEGATIVE (NEGATIVE); GLUCOSE NEGATIVE (NEGATIVE); KETONE NEGATIVE (NEGATIVE); NITRITE NEGATIVE (NEGATIVE); PROTEIN 2+ mg/dL (NEGATIVE); UROBILINOGEN NORMAL (NORMAL)
[2018-02-24 12:16] LABS: BACTERIA FEW /hpf (NONE SEEN); EPITHELIAL CELLS 0-5 /hpf (0-5); RED CELLS - URINE 0-5 /hpf (0-5); WHITE CELLS - URINE 0-5 /hpf (0-5)
[2018-02-25 00:58] VITALS: BP 125/74
[2018-02-25 05:34] VITALS: BP 120/73
[2018-02-25 06:20] LABS: EOSINOPHILS 5.6 % (0-7); HEMATOCRIT 30.7 % (42.0-54.0); HEMOGLOBIN 10.1 g/dL (13.5-17.5); IMMATURE GRANULOCYTES 0.2 % (0-5); MCH 30.7 pg (26.0-34.0); MCHC 32.9 g/dL (31.0-37.0); MCV 93.3 fL (80.0-100.0); MEAN PLATELET VOLUME 10.2 fL (7.4-10.4); MONOCYTES 13.7 % (2-11); NEUTROPHILS 55.5 % (40-80); PLATELET COUNT 169 10x3/uL (130-400); RBC 3.29 10x6/uL (4.20-6.10); RDW 13.9 % (11.5-14.5)
[2018-02-25 07:03] LABS: ALBUMIN 2.8 g/dL (3.4-5.0); BILIRUBIN - DIRECT 0.15 mg/dL (0.00-0.30); BILIRUBIN - INDIRECT 0.25 mg/dL (0.00-1.00); BILIRUBIN - TOTAL 0.4 mg/dL (0.2-1.3); CALCIUM 9.2 mg/dL (8.5-10.1); CARBON DIOXIDE 27.8 mmol/L (21.0-32.0); CREATININE - SERUM 9.1 mg/dL (0.6-1.3); PHOSPHOROUS 8.1 mg/dL (2.5-4.9); POTASSIUM - SERUM 4.8 mmol/L (3.5-5.1); PROTEIN - SERUM 6.9 g/dL (6.4-8.2)
[2018-02-25] MEDS ORDERED: COREG 3.1253.125 MG PO (07:17)
[2018-02-25 08:20] VITALS: BP 111/65
[2018-02-25] MEDS ORDERED: BAYER CHEWABLE81 MG PO (12:44)
== END 2018-02-25 15:01 | disposition home or self-care (01) | DRG 438 ==
LOC: D.ER 08:04 → D.M2 12:48 → D.EDHOLD 12:48 → D.M2 16:41
PROVIDERS: Family Medicine; Internal Medicine Nephrology
PROC: 5A1D70Z Performance of Urinary Filtration, Intermittent, Less than 6 Hours Per Day (ICD-10-PCS; principal; 2018-02-23)
DX: K85.90 Acute pancreatitis without necrosis or infection, unspecified (principal); N18.6 End stage renal disease; I13.2 Hypertensive heart and chronic kidney disease with heart failure and with stage 5 chronic kidney disease, or end stage renal disease; I50.22 Chronic systolic (congestive) heart failure; E11.22 Type 2 diabetes mellitus with diabetic chronic kidney disease; Z99.2 Dependence on renal dialysis; E11.40 Type 2 diabetes mellitus with diabetic neuropathy, unspecified; H40.9 Unspecified glaucoma; I16.0 Hypertensive urgency; F41.8 Other specified anxiety disorders; F43.10 Post-traumatic stress disorder, unspecified; I25.10 Atherosclerotic heart disease of native coronary artery without angina pectoris; D63.1 Anemia in chronic kidney disease; E87.5 Hyperkalemia; Z72.89 Other problems related to lifestyle

== ENCOUNTER 2018-03-13 08:45 | Emergency (ER) | payer MEDICARE, MEDICAID ==
[~2018-03-13] VITALS: Ht 177.8 cm; Wt 80.0 kg
[~2018-03-13 08:45] MED LIST changes: +COREG 3.1253.125 MG PO; +FEXOFENADINE HC60 MG PO; +KENALOG 0.025%15 G1; +LASIX80 MG; +ULTRAM50 MG; +ZOFRAN4 MG PO
[2018-03-13 08:57] VITALS: Ht 177.8 cm; Wt 80.0 kg
[2018-03-13] MEDS ORDERED: NORCO 7.5/325 T1 TA1 PO (10:27)
[2018-03-13 11:08] VITALS: BP 151/82
== END 2018-03-13 11:10 | disposition home or self-care (01) ==
LOC: D.ER 08:45
DX: M17.12 Unilateral primary osteoarthritis, left knee (principal); E11.9 Type 2 diabetes mellitus without complications; I12.9 Hypertensive chronic kidney disease with stage 1 through stage 4 chronic kidney disease, or unspecified chronic kidney disease; N18.9 Chronic kidney disease, unspecified; Z99.2 Dependence on renal dialysis

== ENCOUNTER 2018-03-20 11:55 | Emergency (ER) | payer MEDICARE, MEDICAID ==
[~2018-03-20] VITALS: Ht 177.8 cm; Wt 77.3 kg
[~2018-03-20 11:55] MED LIST changes: +NORCO 7.5/325 T1 TA1 PO
[2018-03-20 12:01] VITALS: BP 180/93; Ht 177.8 cm; Wt 77.3 kg
== END 2018-03-20 12:44 | disposition left against medical advice (07) ==
LOC: D.ER 11:55
DX: R53.1 Weakness (principal); R55 Syncope and collapse; E11.9 Type 2 diabetes mellitus without complications; I12.9 Hypertensive chronic kidney disease with stage 1 through stage 4 chronic kidney disease, or unspecified chronic kidney disease; N18.9 Chronic kidney disease, unspecified; Z99.2 Dependence on renal dialysis

== ENCOUNTER 2018-04-22 08:08 | Emergency (ER) | payer MEDICARE, MEDICAID ==
[~2018-04-22] VITALS: Ht 177.8 cm; Wt 79.5 kg
[2018-04-22 08:12] VITALS: Ht 177.8 cm; Wt 79.5 kg
[2018-04-22] MEDS ORDERED: [UNRECOGNIZED DRUG - OTHER] (08:24)
[2018-04-22 09:51] LABS: APPEARANCE SL CLDY (CLEAR); BACTERIA FEW /hpf (NONE SEEN); BILIRUBIN NEGATIVE (NEGATIVE); COLOR YELLOW (YELLOW); EPITHELIAL CELLS 0-5 /hpf (0-5); GLUCOSE 50 mg/dL (NEGATIVE); KETONE NEGATIVE (NEGATIVE); MUCUS <1+ /lpf (NONE SEEN); NITRITE NEGATIVE (NEGATIVE); PROTEIN 3+ mg/dL (NEGATIVE); SPECIFIC GRAVITY 1.015 (1.005-1.020); UROBILINOGEN NORMAL (NORMAL); WHITE CELLS - URINE OCC /hpf (0-5)
[2018-04-22 11:41] VITALS: BP 196/75
== END 2018-04-22 11:42 | disposition home or self-care (01) ==
LOC: D.ER 08:08
PROVIDERS: Family Medicine
DX: R30.0 Dysuria (principal); G89.29 Other chronic pain; I12.9 Hypertensive chronic kidney disease with stage 1 through stage 4 chronic kidney disease, or unspecified chronic kidney disease; N18.9 Chronic kidney disease, unspecified; Z99.2 Dependence on renal dialysis; E11.9 Type 2 diabetes mellitus without complications

== ENCOUNTER 2018-05-15 12:23 | Emergency (ER) | payer MEDICARE, MEDICAID ==
[~2018-05-15] VITALS: Ht 177.8 cm; Wt 77.3 kg
[~2018-05-15 12:23] MED LIST changes: +[UNRECOGNIZED DRUG - OTHER]
[2018-05-15 12:30] VITALS: Ht 177.8 cm; Wt 77.3 kg
[2018-05-15 13:08] LABS: APPEARANCE CLEAR (CLEAR); BILIRUBIN NEGATIVE (NEGATIVE); COLOR YELLOW (YELLOW); GLUCOSE 50 mg/dL (NEGATIVE); KETONE NEGATIVE (NEGATIVE); NITRITE NEGATIVE (NEGATIVE); PROTEIN 2+ mg/dL (NEGATIVE); SPECIFIC GRAVITY 1.005 (1.005-1.020); UROBILINOGEN NORMAL (NORMAL)
[2018-05-15 13:10] LABS: BACTERIA FEW /hpf (NONE SEEN); EPITHELIAL CELLS 0-5 /hpf (0-5); RED CELLS - URINE 0-5 /hpf (0-5); WHITE CELLS - URINE 0-5 /hpf (0-5)
[2018-05-15 15:03] VITALS: BP 208/98
== END 2018-05-15 15:06 | disposition home or self-care (01) ==
LOC: D.ER 12:23
PROVIDERS: Family Medicine
DX: R68.89 Other general symptoms and signs (principal); I12.0 Hypertensive chronic kidney disease with stage 5 chronic kidney disease or end stage renal disease; N18.6 End stage renal disease; Z99.2 Dependence on renal dialysis; N48.89 Other specified disorders of penis